=== PATIENT | male | born 1955 | race Caucasian/White ===

== ENCOUNTER 2020-05-24 09:54 | Emergency (ER) | payer MEDICARE, SELFPAY ==
[2020-05-24] VITALS (12 sets, daily range): BP systolic 110–150; BP diastolic 63–85; PULSE 49–60; RESP 12–26; TEMP 36.7; O2SAT 97–100
--- NOTE | 2020-05-24 10:24 | DI.RAD.S_ITS ---
PROCEDURE: XR CHEST 1V INDICATIONS: chest pain TECHNIQUE: One view of the chest was acquired. COMPARISON: [facility], , CHEST 1 VIEW, 09/28/2014, 11:47. FINDINGS: Surgical changes and devices: None. Lungs and pleura: Lungs are clear. No pleural effusions or pneumothorax. Mediastinum: Mediastinal contours appear normal. Heart size is normal. Bones and chest wall: No suspicious bony lesions. Overlying soft tissues appear unremarkable. IMPRESSION: No acute cardiopulmonary pathology. Dictated by: Dewayne Holley M.D. on 05/24/2020 at 10:16 Approved by: Dewayne Holley M.D. on 05/24/2020 at 10:23
[2020-05-24 10:34] LABS: Add Manual Diff / Slide Review NO; Basophils Absolute Auto 0 /uL (0-100); Basophils Percent Auto 0.4 % (0-2); Eosinophils Absolute Auto 100 /uL (0-450); Eosinophils Percent Auto 0.8 % (2-4); Hematocrit 47.5 % (41-53); Hemoglobin 16.1 g/dL (13.5-17.5); Lymphocytes Absolute Auto 1200 /uL (1100-4500); Lymphocytes Percent Auto 17.1 % (25-40); Mean Corpuscular HGB Conc 33.9 % (30-36); Mean Corpuscular Hemoglobin 30.5 PG (26-34); Mean Corpuscular Volume 90.2 fL (80-100); Monocytes Absolute Auto 500 /uL (0-900); Monocytes Percent Auto 6.7 % (3-14); Neutrophils Absolute Auto 5100 /uL (1500-7000); Platelet Count 238 X10^3/uL (150-400); Red Blood Cell Count 5.26 X10^6/uL (4.5-5.9); Red Cell Distribution Width 13.1 % (11.6-14.8); White Blood Cell Count 6.7 X10^3/uL (4.5-11.0)
[2020-05-24 10:35] LABS: Prothrombin Time 12.1 SECONDS (10.1-12.7)
[2020-05-24 10:38] LABS: PTT Partial Thromboplastin Tim 34 SECONDS (26.4-36.2)
--- NOTE | 2020-05-24 10:38 | ED_ITS ---
HPI - Chest Pain General Chief Complaint: Chest Pain Stated Complaint: Thinks he's having an Afib attack.. Time Seen by Provider: 05/24/20 10:36 Source: patient Mode of arrival: Ambulatory Limitations: no limitations History of Present Illness HPI narrative: The patient describes palpitations, he has a sensations lower chest. Symptoms have been intermittent, but see me much for frequent in the last 2 days. He has a history of paroxysmal atrial fib, the situation does not seem quite the same, the palpitations are not as persistent. Has no associated chest pain, weakness or dizziness. He does complain of a headache. He also has left posterior neck pain. He says he does not feel well. He denies recent il lness. He has had no sore throat, change in taste or smell, dyspnea or cough. He has had no fever or chills. His adds that he is under lot of pressure right now, she was recently diagnosed with stage IV breast cancer. Other than the remote history of AFib, he has no chronic medical problems. He is on no medications. He has no prior history of surgeries. 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 Related Data Home Medications Medication Instructions Recorded Confirmed No Known Home Medications 05/24/20 05/24/20 Allergies Allergy/AdvReac Type Severity Reaction Status Date / Time No Known Drug Allergies Allergy Verified 05/24/20 10:24 Review of Systems Constitutional Constitutional: Reports system reviewed and no additional complaints, except as documented, Denies anorexia, Reports body ache(s), Denies chills, Reports fatigue, Denies fever(s) and Reports headache(s) Eyes Eyes: Denies change in vision ENT Ears, Nose, Mouth, and Throat: Denies vertigo, Denies dizziness and Reports headache(s) Comments: No ENT complaints. No sore throat. Cardiovascular Cardiovascular: Denies chest pain, Denies syncope, Denies rapid heart rate, Denies pedal edema and Denies dyspnea Comments: Palpitations. Respiratory Respiratory: Denies cough, Denies pain with cough and Denies dyspnea Gastrointestinal Gastrointestinal: Denies abdominal pain, Denies change in bowel habits, Denies diarrhea, Denies nausea and Denies vomiting Genitourinary Comments: No urinary symptoms Musculoskeletal Musculoskeletal: Denies back pain and Denies arthralgias Integumentary/Breasts Skin/Breast: Denies pruritus, Denies erythema, Denies rash and Denies wounds Neurologic Neurologic: Denies confusion, Denies vertigo, Denies dizziness, Denies syncope and Reports headache(s) Psychiatric Psychiatric: Denies confusion Endocrine Endocrine: Reports fatigue Patient History Medical History (Updated 05/24/20 @ 13:51 by Hua Rivera MD) Paroxysmal atrial fibrillation (Acute) Social History Smoking Status: Former smoker Smoking Status: Former smoker alcohol intake frequency: 0-2 drinks per day Substance Use Type: does not use Exam Initial Vital Signs Initial Vital Signs: Vital Signs Temperature 98.1 F 05/24/20 09:57 Pulse Rate 60 05/24/20 09:57 Respiratory Rate 12 05/24/20 09:57 Blood Pressure 150/85 H 05/24/20 09:57 Pulse Oximetry 99 05/24/20 09:57 Const General: cooperative and well developed Nutritional Appearance: well nourished [facility] Head: normocephalic and atraumatic Mouth: oral mucosae normal Throat: posterior oropharynx normal Eyes General: appearance normal, both eyes and all related structures Eyelids: eyelids normal Conjunctivae: conjunctivae normal Sclera: sclerae normal Pupils: PERRL EOM: EOM intact bilaterally Neck Other: Mild left mid cervical paraspinal tenderness. No tenderness over the cervical spine. No meningeal signs. Chest Chest: normal inspection of the chest Resp Effort & Inspection: normal respiratory effort and able to speak in complete sentences Auscultation: clear to auscultation bilaterally, no rales, no rhonchi and no wheezes Cardio Rate: bradycardic Heart Sounds: S1 normal, S2 normal, no click, no gallops and no murmurs GI Inspection: non-distended Palpation: soft, no hepatosplenomegaly, No guarding, No pulsatile mass and No tender Auscultation: normal bowel sounds Back/Spine/Pelvis Back: No CVA tenderness and No erythema Skin General: no rashes or lesions noted, No jaundice and No petechiae Neuro General: patient alert, patient oriented x3, gait normal and no focal motor deficits Speech: speech normal Extrem General: full ROM, no clubbing, cyanosis or edema, no pedal edema and no calf tenderness Psych Mental Status: mental status grossly normal Course Course Course Narrative: The patient was given IV Toradol and Reglan for his headache with good results. He is feeling much better. His cardiopulmonary evaluations normal. He has a healthy blood pressure with a healthy sinus bradycardia. As his inferred, I suspect part of his issues are related to his anxiety and concern of her health. He is seeking a local physician Danelle Roper, I have advised him to proceed but return here if symptoms escalate. Orders Ordered: ED Orders 05/24/20 10:09 Complete Blood Count AUTO DIFF Stat Comprehensive Metabolic Panel Stat Lipase Stat Magnesium Stat Partial Thromboplastin Time Stat Prothrombin Time INR Stat Troponin & CK Cardiac Panel Stat 05/24/20 10:24 XR chest 1V Stat EKG-12 Lead Stat Discontinued Medications Aspirin (Aspirin Chew) 324 mg PO NOW ONE Stop: 05/24/20 10:25 Last Admin: 05/24/20 10:43 Dose: 324 mg Documented by: DINO Sodium Chloride (Normal Saline 0.9%) 1,000 mls @ 1,000 mls/hr IV BOLUS ONE Stop: 05/24/20 12:43 Last Infusion: 05/24/20 13:00 Dose: 1,000 mls/hr Documented by: Admin: 05/24/20 11:54 Dose: 1,000 mls/hr Documented by: DINO Ketorolac Tromethamine (Toradol) 15 mg IV NOW ONE Stop: 05/24/20 11:46 Last Admin: 05/24/20 11:53 Dose: 15 mg Documented by: DINO Metoclopramide HCl (Reglan) 10 mg IV NOW ONE Stop: 05/24/20 11:46 Last Admin: 05/24/20 11:53 Dose: 10 mg Documented by: DINO Vital Signs Vital signs: Vital Signs - 8 hr 05/24/20 09:57 05/24/20 10:26 05/24/20 10:30 Temperature 98.1 F Pulse Rate 60 58 L 56 L Respiratory Rate 12 16 22 Blood Pressure 150/85 H 121/70 Pulse Oximetry 99 98 98 05/24/20 11:00 05/24/20 11:30 05/24/20 12:00 Temperature Pulse Rate 52 L 49 L 51 L Respiratory Rate 23 16 26 H Blood Pressure 122/69 118/65 Pulse Oximetry 98 98 99 05/24/20 12:03 05/24/20 12:30 05/24/20 12:31 Temperature Pulse Rate 59 L 53 L 56 L Respiratory Rate 15 18 Blood Pressure 146/80 H 121/63 Pulse Oximetry 99 97 98 05/24/20 13:00 05/24/20 13:30 Temperature Pulse Rate 52 L 53 L Respiratory Rate Blood Pressure 114/67 110/68 Pulse Oximetry 98 100 MDM - Chest Pain Lab Data Result diagrams: 05/24/20 10:09 05/24/20 10:09 Labs: Lab Results 05/24/20 05/24/20 05/24/20 Range/Units 10:09 10:09 10:09 WBC 6.7 (4.5-11.0) X10^3/uL RBC 5.26 (4.5-5.9) X10^6/uL Hgb 16.1 (13.5-17.5) g/dL Hct 47.5 (41-53) % MCV 90.2 (80-100) fL MCH 30.5 (26-34) PG MCHC 33.9 (30-36) % RDW 13.1 (11.6-14.8) % Plt Count 238 (150-400) X10^3/uL Neut % (Auto) 75.0 (50-75) % Lymph % (Auto) 17.1 L (25-40) % [place] % (Auto) 6.7 (3-14) % Eos % (Auto) 0.8 L (2-4) % Baso % (Auto) 0.4 (0-2) % Neut # (Auto) 5100 (7281-6816) /uL Lymph # (Auto) 1200 (0039-9329) /uL [place] # (Auto) 500 (0-900) /uL Eos # (Auto) 100 (0-450) /uL Baso # (Auto) 0 (0-100) /uL PT 12.1 (10.1-12.7) SECONDS INR 1.0 (0.9-1.3) APTT 34 (26.4-36.2) SECONDS Sodium 139 (137-145) mmol/L Potassium 4.8 (3.4-5.1) mmol/L Chloride 108 H (98-107) mmol/L Carbon Dioxide 25 (22-32) mmol/L BUN 14 (9-20) mg/dL Creatinine 0.87 (0.66-1.25) mg/dL Estimated GFR > 60.0 (>60) mL/min BUN/Creatinine Ratio 16.1 (6-22) Glucose 106 (80-110) mg/dL Calcium 9.2 (8.4-10.2) mg/dL Magnesium (1.6-2.3) mg/dL Total Bilirubin 0.7 (0.2-1.3) mg/dL AST 30 (17-59) IU/L ALT 22 (<50) IU/L Alkaline Phosphatase 97 (38-126) U/L Total Creatine Kinase 87 (55-170) U/L CK-MB (CK-2) TNP CK-MB (CK-2) Rel Index TNP Troponin I < 0.012 (0.01-0.034) ng/mL Total Protein 7.0 (6.3-8.2) g/dL Albumin 4.3 (3.5-5.0) g/dL Globulin 2.7 (1.7-4.1) g/dL Albumin/Globulin Ratio 1.6 (1.0-2.8) Lipase 92 (23-300) U/L // Range/Units 10:09 WBC (4.5-11.0) X10^3/uL RBC (4.5-5.9) X10^6/uL Hgb (13.5-17.5) g/dL Hct (41-53) % MCV (80-100) fL MCH (26-34) PG MCHC (30-36) % RDW (11.6-14.8) % Plt Count (150-400) X10^3/uL Neut % (Auto) (50-75) % Lymph % (Auto) (25-40) % [place] % (Auto) (3-14) % Eos % (Auto) (2-4) % Baso % (Auto) (0-2) % Neut # (Auto) (9405-1280) /uL Lymph # (Auto) (1063-5375) /uL [place] # (Auto) (0-900) /uL Eos # (Auto) (0-450) /uL Baso # (Auto) (0-100) /uL PT (10.1-12.7) SECONDS INR (0.9-1.3) APTT (26.4-36.2) SECONDS Sodium (137-145) mmol/L Potassium (3.4-5.1) mmol/L Chloride (98-107) mmol/L Carbon Dioxide (22-32) mmol/L BUN (9-20) mg/dL Creatinine (0.66-1.25) mg/dL Estimated GFR (>60) mL/min BUN/Creatinine Ratio (6-22) Glucose (80-110) mg/dL Calcium (8.4-10.2) mg/dL Magnesium 2.1 (1.6-2.3) mg/dL Total Bilirubin (0.2-1.3) mg/dL AST (17-59) IU/L ALT (<50) IU/L Alkaline Phosphatase (38-126) U/L Total Creatine Kinase (55-170) U/L CK-MB (CK-2) CK-MB (CK-2) Rel Index Troponin I (0.01-0.034) ng/mL Total Protein (6.3-8.2) g/dL Albumin (3.5-5.0) g/dL Globulin (1.7-4.1) g/dL Albumin/Globulin Ratio (1.0-2.8) Lipase (23-300) U/L Imaging Data Chest x-ray: Radiologist's Impression: No acute cardiopulmonary process identified. ECG Data Attestation: I personally reviewed and interpreted this ECG as follows: (Sinus bradycardia rate 59 beats per minute. Normal intervals. Poor R-wave progression to the anterior leads. No acute ST T wave changes. No ectopy.) Discharge Plan Departure Patient Disposition: Home Clinical Impression: Palpitations Acute tension headache Qualifiers: Intractability: not intractable Qualified Code(s): G44.209 - Tension-type headache, unspecified, not intractable Instructions: Tension Headache, DI for Palpitations Activity Restrictions/Additional Instructions: Be sure getting appropriate rest, be sure your nutrition in water intake are adequate. Tylenol 2 tablets every 4 hours, or Advil 3 tabs every 6 hours as needed for headache. If you have worsening headaches, or if you develop persistent chest pain weakness or dizziness return the ER. Otherwise establish care with local doctor in [place] as we discussed. Prescriptions: No Action No Known Home Medications RF: 0
[2020-05-24 10:39] LABS: Alanine Aminotransferase 22 IU/L (<50); Albumin 4.3 g/dL (3.5-5.0); Albumin Globulin Ratio 1.6 (1.0-2.8); Alkaline Phosphatase 97 U/L (38-126); Aspartate Aminotransferase 30 IU/L (17-59); BUN Creatinine Ratio 16.1 (6-22); Bilirubin Total 0.7 mg/dL (0.2-1.3); Blood Urea Nitrogen 14 mg/dL (9-20); Calcium 9.2 mg/dL (8.4-10.2); Carbon Dioxide 25 mmol/L (22-32); Chloride 108 mmol/L (98-107); Creatine Kinase 87 U/L (55-170); Estimated Glomerular Filt Rate > 60.0 mL/min (>60); Globulin 2.7 g/dL (1.7-4.1); Glucose 106 mg/dL (80-110); HEMOLYSIS < 15 (0-50); Lipase 92 U/L (23-300); Potassium 4.8 mmol/L (3.4-5.1); Sodium 139 mmol/L (137-145)
[2020-05-24 10:40] LABS: Magnesium 2.1 mg/dL (1.6-2.3)
[2020-05-24] MEDS: ASPIRIN 81 MG CHEW TAB 324 MG PO (10:43)
--- NOTE | 2020-05-24 10:45 | PC.NURSE ---
Pt states that he has been under tremendous stress r/t wifes stage IV cancer diagnosis. States he believes he has been in afib, with increased questions he describes regular beats then a single 'thump' which 'feels like the PVCs I have had in the past, just worse than normal.
[2020-05-24 10:51] LABS: Troponin I < 0.012 ng/mL (0.01-0.034)
[2020-05-24] MEDS: METOCLOPRAMIDE 10 MG/2 ML INJ IV (11:53)
[2020-05-24] MEDS: KETOROLAC 60 MG/2 ML VIAL 15 MG IV (11:53)
[2020-05-24] MEDS: SODIUM CHLORIDE 0.9% 1,000 ML 1000 ML IV (11:54)
== END 2020-05-24 14:05 | disposition home or self-care (01) ==
PROVIDERS: Emergency Provider Emergency Medicine
DX: R00.2 Palpitations (principal); G44.209 Tension-type headache, unspecified, not intractable; R00.1 Bradycardia, unspecified; I48.0 Paroxysmal atrial fibrillation
CPT/HCPCS: 36415; 71045; 80053; 82550; 83690; 83735; 84484; 85025; 85610; 85730; 93005; 96361; 96374; 96375; 99284; J1885; J2765

== ENCOUNTER → 2020-11-28 10:46 | Outpatient (CLI) | payer MEDICARE, SELFPAY ==
--- NOTE | 2020-11-28 | DI.RAD.S_ITS ---
PROCEDURE: XR CHEST 2V INDICATIONS: ASPIRATION INTO AIRWAY INITIAL ENCOUNTER. COUGH TECHNIQUE: 2 views of the chest were acquired. COMPARISON: [facility], [place], XR CHEST 1V, 05/24/2020, 10:49. [facility], [place], CHEST 1 VIEW, 09/28/2014, 11:47. FINDINGS: Surgical changes and devices: None. Lungs and pleura: Lungs are clear. No pleural effusions or pneumothorax. Mediastinum: Mediastinal contours are normal. Heart size is normal. Bones and chest wall: No suspicious bony abnormalities. Soft tissues appear unremarkable. IMPRESSION: Normal for age, source of current cough symptoms is not seen. Dictated by: Bashir Carrillo M.D. on 11/28/2020 at 13:22 Approved by: Bashir Carrillo M.D. on 11/28/2020 at 13:23
== END ==
PROVIDERS: PCP Student in an Organized Health Care Education/Training Program; Referring Provider Student in an Organized Health Care Education/Training Program; Visit Provider Student in an Organized Health Care Education/Training Program
DX: R05 Cough (principal); T17.908A Unspecified foreign body in respiratory tract, part unspecified causing other injury, initial encounter
CPT/HCPCS: 71046

== ENCOUNTER → 2020-12-02 13:05 | Outpatient (CLI) | payer MEDICARE, SELFPAY ==
--- NOTE | 2020-12-24 08:11 | PM.CARDMON.1 ---
[employer] Report Referral & Results Date Patient Seen: 12/02/20 Requesting provider: Elvie Strauss Indication: Atrial fibrillation Duration of monitoring (days): 7 Diary information: There were 8 patient triggered events and 8 patient diary entries Patient triggered events were associated with (within 45 seconds) sinus rhythm, PACs, and PVCs Patient diary events were associated with (within 45 seconds) sinus rhythm and PVCs Data: Minimum heart rate identified was 40 beats per minute at 05:42 on 12/08/2020 Maximum sinus heart rate was 114 beats per minute at 12:19 on 12/08/2020 Maximum overall heart rate was 184 beats per minute at 16:06 on 12/05/2020 during a 9 beat run of SVT Less than 1% of identified beats or either ventricular supraventricular ectopic in origin There were 15 runs of SVT the fastest being the 9 beat run noted above the longest lasting 17.2 seconds stated rate of 115 beats per minute which suggest atrial tachycardia rather than true SVT Impression: Patient with brief rare runs of SVT as above Mild bradycardia also noted with minimum heart rate of 40 No episodes of atrial fibrillation identified on this study
== END ==
PROVIDERS: PCP Student in an Organized Health Care Education/Training Program; Referring Provider Student in an Organized Health Care Education/Training Program; Visit Provider Student in an Organized Health Care Education/Training Program
DX: I48.91 Unspecified atrial fibrillation (principal)
CPT/HCPCS: 93242; 93244

== ENCOUNTER 2021-09-10 09:54 | Inpatient (IN) | payer MEDICARE, SELFPAY ==
[2021-09-10] VITALS (21 sets, daily range): BP systolic 102–150; BP diastolic 52–86; PULSE 16–81; RESP 12–18; TEMP 36.4–37.8; O2SAT 94–98; BMI 34.8
--- NOTE | 2021-09-10 | PATH_ITS ---
[facility] Accession Number: [id number] . 01 Material submitted: . appendix - APPENDIX . 02 Diagnosis: Appendix, Appendectomy: Acute appendicitis and serositis with features suggestive of perforation. MRV 09/15/2021 1218 Local . 02 Electronically signed: . Alyssia Brown MD, Pathologist NPI- [id number] . 01 Gross description: . Received in formalin, labeled with the patient's name and appendix is a significantly disrupted specimen consisting of hemorrhagic and adhesed tissue admixed with fatty tissue and possible appendix measuring 7.0 x 5.2 x 2.6 cm in aggregate. No fecaliths are identified. Heel Shaver sections are submitted as follows: . A1: Possible appendix tip. A2: Additional possible appendix. (MILLA:[id number]) /MRV 09/12/2021 1401 Local . 02 Pathologist provided ICD-10: K35.20 . 02 CPT . 481724 Performed at: 01 [facility] [address], [place], [place] [id number] MD Gordon Brar MD Phone: [phone] Performed at: 02 [facility] [address] [place], [place] [id number] MD Ange Bonner MD Phone: [phone]
[2021-09-10 10:42] LABS: Add Manual Diff / Slide Review NO; Basophils Absolute Auto 0 /uL (0-100); Basophils Percent Auto 0.2 % (0-2); Eosinophils Absolute Auto 100 /uL (0-450); Eosinophils Percent Auto 0.4 % (2-4); Hematocrit 43.2 % (41-53); Hemoglobin 14.6 g/dL (13.5-17.5); Lymphocytes Absolute Auto 1200 /uL (1100-4500); Lymphocytes Percent Auto 9.5 % (25-40); Mean Corpuscular HGB Conc 33.9 % (30-36); Mean Corpuscular Hemoglobin 30.1 PG (26-34); Mean Corpuscular Volume 88.8 fL (80-100); Monocytes Absolute Auto 1200 /uL (0-900); Neutrophils Absolute Auto 9800 /uL (1500-7000); Neutrophils Percent Auto 79.9 % (50-75); Platelet Count 245 X10^3/uL (150-400); Red Blood Cell Count 4.86 X10^6/uL (4.5-5.9); Red Cell Distribution Width 12.9 % (11.6-14.8); White Blood Cell Count 12.2 X10^3/uL (4.5-11.0)
[2021-09-10 10:49] LABS: Alanine Aminotransferase 17 IU/L (<50); Albumin Globulin Ratio 1.4 (1.0-2.8); Alkaline Phosphatase 87 U/L (38-126); Aspartate Aminotransferase 23 IU/L (17-59); BUN Creatinine Ratio 12.7 (6-22); Bilirubin Total 0.8 mg/dL (0.2-1.3); Blood Urea Nitrogen 13 mg/dL (9-20); Calcium 9.1 mg/dL (8.4-10.2); Carbon Dioxide 28 mmol/L (22-32); Chloride 102 mmol/L (98-107); Estimated Glomerular Filt Rate > 60.0 mL/min (>60); Globulin 2.8 g/dL (1.7-4.1); Glucose 103 mg/dL (80-110); HEMOLYSIS < 15 (0-50); Lipase 63 U/L (23-300); Potassium 4.4 mmol/L (3.4-5.1); Sodium 135 mmol/L (137-145); Total Protein 6.8 g/dL (6.3-8.2)
--- NOTE | 2021-09-10 10:50 | ED_ITS ---
HPI - Abdominal Pain General Chief Complaint: Abdominal Pain Stated Complaint: ABD pain four weeks Time Seen by Provider: 09/10/21 10:37 Source: patient Mode of arrival: Ambulatory Limitations: no limitations History of Present Illness HPI narrative: This is a 66-year-old male who comes with at least a week of abdominal pain he states he has actually had intermittent abdominal discomfort but since before he has been having intermittent abdominal pain which is often present but has been worsening. He will have some mild pain that will occasionally be quite sharp in certain locations. It sort of started in the left lower quadrant but he also notes it on more consistently on the right lower quadrant at sort of throughout the entire got times. He has had some mild intermittent nausea but nothing persistent. He has not had any vomiting. He has felt a little warm today but no documented fevers or chills. He has been constipated with very small palpably bowel movements which now have become long and and somewhat sticky and or bladder little bit softer. Patient has not had any melena or hematochezia. He denies any new urinary symptoms. 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 Patient states they were able to reach it rectal coulee and he did not require open abdominal surgery or ex lap. He has not had a colonoscopy or repeat evaluation for this since then. He does also have a history of diverticulitis and was admitted for 3 days in the past for IV antibiotics. He is on aspirin daily and has a history of paroxysmal atrial fibrillation. He denies any tobacco or alcohol since age 28. No recreational drugs. His primary care is Elvie Strauss. Related Data Home Medications Medication Instructions Recorded Confirmed aspirin 325 mg tablet 325 mg PO DAILY 09/10/21 09/10/21 cholecalciferol (vitamin D3) 25 50 mcg PO DAILY 09/10/21 09/10/21 mcg (1,000 unit) tablet (Vitamin D3) Allergies Allergy/AdvReac Type Severity Reaction Status Date / Time No Known Drug Allergies Allergy Verified 09/10/21 10:10 Review of Systems Review of Systems ROS Unobtainable: All systems reviewed & are unremarkable except as noted in HPI and below Patient History Medical History (Updated 09/10/21 @ 13:32 by Steven Marin MD) Fracture of left tibia Paroxysmal atrial fibrillation Social History household members: none Smoking Status: Former smoker Smoking Status: Former smoker alcohol intake frequency: holidays/special occasions only Substance Use Type: does not use Exam Narrative Exam Narrative: GENERAL: Alert and oriented x three, male in mild distress. HEENT: Head normocephalic, atraumatic, EOMI, pupils reactive, face symmetric, moist mucous membranes NECK: Supple, full range of motion CARDIOVASCULAR: Regular rate and rhythm without murmurs, rubs or gallops. RESPIRATORY: Breath sounds equal bilaterally, no wheezes rales or rhonchi. ABDOMEN: Soft, nontender on palpation. Non-distended. Normoactive bowel sounds all 4 quadrants. No guarding or rebound, rigidity, no mass : No CVA tenderness EXTREMITIES: Normal range of motion. Neurovascularly intact NEUROLOGICAL: Cranial nerves II through XII grossly intact. Moving all extremities SKIN: Warm, dry, no petechiae, no rashes or lesions. 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 swab/PCR) Stat COVID19 -Nasal swab/Pre-Proc Stat Acetaminophen (Acetaminophen 325 Mg Tablet) 650 mg PO PACUNOW PRN PRN Reason: Pain, Mild (1-3) Fentanyl (Fentanyl 100 Mcg/2 Ml Inj) 0 mcg IV Q5M PRN PRN Reason: Pain, Moderate (4-6) Hydromorphone HCl (Hydromorphone 2 Mg Inj) 0 mg IV Q5MIN PRN PRN Reason: Pain, Mild (1-3) Lactated Ringer's (Lactated Ringers) 1,000 mls @ 100 mls/hr IV CONT CLARITZA Last Admin: 09/10/21 17:59 Dose: 100 mls/hr Documented by: [email or web address] Infusion: 09/10/21 17:59 Dose: 100 mls/hr Documented by: Admin: 09/10/21 17:53 Dose: 100 mls/hr Documented by: [email or web address] Infusion: 09/10/21 17:53 Dose: 100 mls/hr Documented by: Admin: 09/10/21 14:16 Dose: 100 mls/hr Documented by: IRA Piperacillin Sod/Tazobactam (Sod 3.375 gm/ Sodium Chloride) 100 mls @ 25 mls/hr IV NOW ONE Stop: 09/10/21 18:53 Last Infusion: 09/10/21 18:30 Dose: 0 mls/hr Documented by: Admin: 09/10/21 18:20 Dose: 25 mls/hr Documented by: KELSEY Influenza Virus Vaccine (Influenza Hd Vaccine 0.7 Ml Syringe) 0.7 ml IM .ONCE ONE Stop: 09/11/21 09:01 Morphine Sulfate (Morphine 2 Mg/Ml Inj) 2 mg IV Q4HR PRN PRN Reason: Pain, Moderate (4-6) Naloxone HCl (Naloxone 0.4 Mg/Ml Vial) 0.2 mg IV Q2MIN PRN PRN Reason: Opiate Reversal Ondansetron HCl (Ondansetron 4 Mg/2 Ml Inj) 4 mg IV NOW PRN PRN Reason: Nausea And Vomiting Oxycodone HCl (Oxycodone Ir 5 Mg Tablet) 5 mg PO PACUNOW PRN PRN Reason: Mild or moderate pain Discontinued Medications Bupivacaine HCl (Bupivacaine 0.5% (Pf) Vial) 30 ml INJ NOW ONE Stop: 09/10/21 18:46 Last Admin: 09/10/21 18:46 Dose: 20 ml Documented by: RADHA Piperacillin Sod/Tazobactam (Sod 4.5 gm/ Sodium Chloride) 100 mls @ 200 mls/hr IV NOW ONE Stop: 09/10/21 12:30 Last Infusion: 09/10/21 13:25 Dose: 0 mls/hr Documented by: Admin: 09/10/21 12:44 Dose: 200 mls/hr Documented by: PASCUAL Sodium Chloride (Normal Saline 0.9%) 1,000 mls @ 150 mls/hr IV CONT CLARITZA Last Infusion: 09/10/21 13:35 Dose: 0 mls/hr Documented by: Admin: 09/10/21 12:45 Dose: 150 mls/hr Documented by: PASCUAL Piperacillin Sod/Tazobactam (Sod 3.375 gm/ Sodium Chloride) 100 mls @ 200 mls/hr IV INTRA-OP ONE Stop: 09/10/21 13:50 Ketorolac Tromethamine (Ketorolac 30 Mg/Ml Vial) 15 mg IV NOW ONE Stop: 09/10/21 12:30 Last Admin: 09/10/21 12:43 Dose: 15 mg Documented by: PASCUAL Consultations Consultation #1: Dr. Marin, accepts for appendicitis. He saw the patient in the department. IV Zosyn was given. Patient has been admitted and has been NPO since 06/09 this morning. Vital Signs Vital signs: Vital Signs - 8 hr 09/10/21 10:55 09/10/21 11:00 09/10/21 11:28 Pulse Rate 68 69 70 Blood Pressure 136/78 131/77 135/70 Pulse Oximetry 97 97 98 09/10/21 11:30 09/10/21 12:00 Pulse Rate 67 67 Blood Pressure Pulse Oximetry 97 95 MDM - Abdominal Pain Lab Data Result diagrams: 09/10/21 10:23 09/10/21 10:23 Labs: Lab Results 09/10/21 09/10/21 09/10/21 Range/Units 10:23 10:23 11:16 WBC 12.2 H (4.5-11.0) X10^3/uL RBC 4.86 (4.5-5.9) X10^6/uL Hgb 14.6 (13.5-17.5) g/dL Hct 43.2 (41-53) % MCV 88.8 (80-100) fL MCH 30.1 (26-34) PG MCHC 33.9 (30-36) % RDW 12.9 (11.6-14.8) % Plt Count 245 (150-400) X10^3/uL Neut % (Auto) 79.9 H (50-75) % Lymph % (Auto) 9.5 L (25-40) % [place] % (Auto) 10.0 (3-14) % Eos % (Auto) 0.4 L (2-4) % Baso % (Auto) 0.2 (0-2) % Neut # (Auto) 9800 H (0747-7900) /uL Lymph # (Auto) 1200 (6411-2115) /uL [place] # (Auto) 1200 H (0-900) /uL Eos # (Auto) 100 (0-450) /uL Baso # (Auto) 0 (0-100) /uL Sodium 135 L (137-145) mmol/L Potassium 4.4 (3.4-5.1) mmol/L Chloride 102 (98-107) mmol/L Carbon Dioxide 28 (22-32) mmol/L BUN 13 (9-20) mg/dL Creatinine 1.02 (0.66-1.25) mg/dL Estimated GFR > 60.0 (>60) mL/min BUN/Creatinine Ratio 12.7 (6-22) Glucose 103 (80-110) mg/dL Calcium 9.1 (8.4-10.2) mg/dL Total Bilirubin 0.8 (0.2-1.3) mg/dL AST 23 (17-59) IU/L ALT 17 (<50) IU/L Alkaline Phosphatase 87 (38-126) U/L Total Protein 6.8 (6.3-8.2) g/dL Albumin 4.0 (3.5-5.0) g/dL Globulin 2.8 (1.7-4.1) g/dL Albumin/Globulin Ratio 1.4 (1.0-2.8) Lipase 63 (23-300) U/L Urine RBC 1-5/hpf (0-5/HPF) Urine WBC 0-1/hpf (0-5/HPF) Urine Bacteria None seen (None) Ur Culture Indicated? Cult not indicated SARS-CoV-2 (PCR) (Negative) 09/10/21 09/10/21 Range/Units 12:03 12:03 WBC (4.5-11.0) X10^3/uL RBC (4.5-5.9) X10^6/uL Hgb (13.5-17.5) g/dL Hct (41-53) % MCV (80-100) fL MCH (26-34) PG MCHC (30-36) % RDW (11.6-14.8) % Plt Count (150-400) X10^3/uL Neut % (Auto) (50-75) % Lymph % (Auto) (25-40) % [place] % (Auto) (3-14) % Eos % (Auto) (2-4) % Baso % (Auto) (0-2) % Neut # (Auto) (8889-0490) /uL Lymph # (Auto) (7138-9345) /uL [place] # (Auto) (0-900) /uL Eos # (Auto) (0-450) /uL Baso # (Auto) (0-100) /uL Sodium (137-145) mmol/L Potassium (3.4-5.1) mmol/L Chloride (98-107) mmol/L Carbon Dioxide (22-32) mmol/L BUN (9-20) mg/dL Creatinine (0.66-1.25) mg/dL Estimated GFR (>60) mL/min BUN/Creatinine Ratio (6-22) Glucose (80-110) mg/dL Calcium (8.4-10.2) mg/dL Total Bilirubin (0.2-1.3) mg/dL AST (17-59) IU/L ALT (<50) IU/L Alkaline Phosphatase (38-126) U/L Total Protein (6.3-8.2) g/dL Albumin (3.5-5.0) g/dL Globulin (1.7-4.1) g/dL Albumin/Globulin Ratio (1.0-2.8) Lipase (23-300) U/L Urine RBC (0-5/HPF) Urine WBC (0-5/HPF) Urine Bacteria (None) Ur Culture Indicated? SARS-CoV-2 (PCR) Negative Negative (Negative) Point of care testing: Urine Dip Bedside Urine Glucose Negative Bedside Urine Bilirubin - Negative Bedside Urine Ketone +/- 5 Urine Specific [place] 1.015 Bedside Urine Occult Blood ++ Bedside Urine pH 6.0 Bedside Urine Protein - Negative Bedside Urine Urobilinogen - Negative Bedside Urine Nitrite - Negative Bedside Urine Leukocytes - Negative Esterase Imaging Data CT scan - abdomen/pelvis: Radiologist's Impression: Launch?[address] [address] [address] Scan Report Signed Patient: Andrew Cullen MR#: [id number] : 1955 Acct:[id number] Age/Sex: 66 / M Date of Service: 09/10/21 Loc: ED Accession Number: [id number] ?? Procedure: CT abdomen pelvis w con Ordering Provider: Carin Azevedo D.O. PROCEDURE:? CT ABDOMEN PELVIS W CON ? INDICATIONS:? abd pain x 1 wk, hx colon resect 2000. hx diveriticulitis ? TECHNIQUE:? After the administration of intravenous contrast, axial sections acquired from the lung bases to the pubic symphysis.? Coronal and sagittal reformats were performed.? For radiation dose reduction, the following was used:? automated exposure control, adjustment of mA and/or kV according to patient size.? ? COMPARISON:? None. ? FINDINGS:? Image quality:? Excellent.? ? Lung bases:? Left basilar atelectasis. Heart:? No significant findings. ? ABDOMEN: Liver:? Normal size.? Multiple indeterminate small hepatic hypodensities are present, too small to further characterize.? ? Gallbladder:? Unremarkable.? ? Biliary ducts:? Unremarkable.? ? Pancreas:? Unremarkable.? ? Spleen:? Unremarkable.? ? Adrenal Glands:? Unremarkable.? ? Kidneys and Ureters:? Kidneys are normal in size.? There is a large multilocular complex cystic mass in the left kidney measuring 6.7 x 10.6 x 8.3 cm.? ? ? Stomach and Bowel:? Appendix is thickened measuring up to 15 mm. There is prominent periappendiceal stranding compatible with acute appendicitis.? Thickening of cecum is noted.? Diverticulosis without acute diverticulitis. Peritoneum:? Trace amount of free fluid in the right pericolic gutter.? No organized fluid collections to suggest abscess.? No free air.? ? Ventral Wall: ? No hernias.? Abdominal Nodes:? No retroperitoneal or mesenteric adenopathy by size criteria.? Vessels:? Aorta and inferior vena cava are normal in size.? ? PELVIS: Pelvic Organs:? Unremarkable.? ? Bladder:? Unremarkable.? ? Pelvic Nodes: No enlarged lymph nodes.? Miscellaneous: No hernias are seen. ? ? ? Bones:? Mild chronic appearing compression fracture of L1.? Vddtkhkr-[id number] degenerative changes in lumbar spine.? Small foci of sclerosis in bony pelvis and proximal femurs are most likely small bone islands. ? ? IMPRESSION:? ? 1. Appendix is thickened.? There is a marked periappendiceal stranding.? The CT findings are consistent acute appendicitis.? There is also thickenedcecum, likely secondary to direct spread of inflammation/infection.? A neoplastic process, although less likely, is not entirely excluded.? A small amount of free fluid is present in the right lower quadrant.? There is no abscess. ? 2. Colonic diverticulosis.? No CT findings to suggest acute diverticulitis. ? 3. Numerous indeterminate hepatic hypodensities, too small to further characterize.? If clinically indicated, MRI may be obtained for further evaluation. ? 4. A large multilocular complex cyst mass in the left kidney measuring 6.7 x 10.6 x 8.3 cm (at least Bosniak category 2 F).? It is incompletely evaluated with current CT.? To rule out solid component, a short-term renal ultrasound follow-up is recommended. ? 5. Mild chronic compression fracture of L1. ? ? The result was discussed with Dr. Azevedo.? Dictated by: Ramonita Paris M.D. on 09/10/2021 at 11:37 ? ? Approved by: Ramonita Paris M.D. on 09/10/2021 at 11:53?? ECG Data Attestation: I personally reviewed and interpreted this ECG as follows: Prior ECG tracings: available for review Interpretation: Sinus rhythm. Rate of 68 TX 154 QRS 8094 QTC 387. Q wave in 3 as well as V1. Patient has prior EKG which appears similar from July 2020 as well as September of 2014. [facility] Narrative Medical decision making narrative: 66-year-old male comes with complaint of abdominal pain for the past week starting around [place]. He has right lower quadrant changes concerning for appendicitis. He did complain of some right lower quadrant pain. He does have a leftward shift with a slight leukocytosis. Patient was noted to have a left renal mass but does not seem consistent with his pain he has not had any ba ck or flank pain. We discussed he will need to follow up in have ultrasound of this. Patient feels comfortable with this plan. All questions answered. Discharge Plan Departure Patient Disposition: Admitted as Observation Clinical Impression: Acute appendicitis, Left renal mass Admit Date/Time: 09/10/21 13:12 Admit Provider: Steven Marin
--- NOTE | 2021-09-10 11:10 | DI.CT.S_ITS ---
PROCEDURE: CT ABDOMEN PELVIS W CON INDICATIONS: abd pain x 1 wk, hx colon resect 2000. hx diveriticulitis TECHNIQUE: After the administration of intravenous contrast, axial sections acquired from the lung bases to the pubic symphysis. Coronal and sagittal reformats were performed. For radiation dose reduction, the following was used: automated exposure control, adjustment of mA and/or kV according to patient size. COMPARISON: None. FINDINGS: Image quality: Excellent. Lung bases: Left basilar atelectasis. Heart: No significant findings. ABDOMEN: Liver: Normal size. Multiple indeterminate small hepatic hypodensities are present, too small to further characterize. Gallbladder: Unremarkable. Biliary ducts: Unremarkable. Pancreas: Unremarkable. Spleen: Unremarkable. Adrenal Glands: Unremarkable. Kidneys and Ureters: Kidneys are normal in size. There is a large multilocular complex cystic mass in the left kidney measuring 6.7 x 10.6 x 8.3 cm. Stomach and Bowel: Appendix is thickened measuring up to 15 mm. There is prominent periappendiceal stranding compatible with acute appendicitis. Thickening of cecum is noted. Diverticulosis without acute diverticulitis. Peritoneum: Trace amount of free fluid in the right pericolic gutter. No organized fluid collections to suggest abscess. No free air. Ventral Wall: No hernias. Abdominal Nodes: No retroperitoneal or mesenteric adenopathy by size criteria. Vessels: Aorta and inferior vena cava are normal in size. PELVIS: Pelvic Organs: Unremarkable. Bladder: Unremarkable. Pelvic Nodes: No enlarged lymph nodes. Miscellaneous: No hernias are seen. Bones: Mild chronic appearing compression fracture of L1. [id number] degenerative changes in lumbar spine. Small foci of sclerosis in bony pelvis and proximal femurs are most likely small bone islands. IMPRESSION: 1. Appendix is thickened. There is a marked periappendiceal stranding. The CT findings are consistent acute appendicitis. There is also thickenedcecum, likely secondary to direct spread of inflammation/infection. A neoplastic process, although less likely, is not entirely excluded. A small amount of free fluid is present in the right lower quadrant. There is no abscess. 2. Colonic diverticulosis. No CT findings to suggest acute diverticulitis. 3. Numerous indeterminate hepatic hypodensities, too small to further characterize. If clinically indicated, MRI may be obtained for further evaluation. 4. A large multilocular complex cyst mass in the left kidney measuring 6.7 x 10.6 x 8.3 cm (at least Bosniak category 2 F). It is incompletely evaluated with current CT. To rule out solid component, a short-term renal ultrasound follow-up is recommended. 5. Mild chronic compression fracture of L1. The result was discussed with Dr. Azevedo. Dictated by: Ramonita Paris M.D. on 09/10/2021 at 11:37 Approved by: Ramonita Paris M.D. on 09/10/2021 at 11:53
[2021-09-10 11:25] LABS: Bacteria Urine None Seen; Culture Indicated Urine Cult Not Indicated; RBC Urine 1-5/HPF (0-5/HPF); WBC Urine 0-1/HPF (0-5/HPF)
[2021-09-10] MEDS: KETOROLAC 30 MG/ML VIAL 15 MG IV (12:43)
[2021-09-10 12:44] LABS: COVID19 -Nasal RAPID Negative (Negative)
[2021-09-10] MEDS: PIPERACILLIN/TAZO 4.5 GM in SODIUM CHLORIDE 0.9% 100 ML 200 ML IV (12:44)
[2021-09-10] MEDS: SODIUM CHLORIDE 0.9% 1,000 ML 150 ML IV (12:45)
[2021-09-10 13:08] LABS: COVID19 - ADMIT (NP swab/PCR) Negative (Negative)
--- NOTE | 2021-09-10 13:30 | PM.HP.1 ---
History of Present Illness History of Present Illness Chief complaint: ABD pain four weeks Narrative: About 6 days ago the patient began having vague abdominal pain. It became more severe the last 2 days and he presented himself to the emergency room. Pain is mostly centered in the right lower abdomen. Has been a little nauseated at times are no emesis. Last p.o. solids was yesterday. No prior abdominal operations though he has had a benign rectal lesion removed transrectally. Patient History Medical History (Updated 09/10/21 @ 13:32 by Steven Marin MD) Fracture of left tibia Paroxysmal atrial fibrillation Family & Social History Safety & Behavioral: Feels Safe in Current Yes Environment Been Physically Hurt or No Threatened By a Person Tobacco & Substance use: Smoking Status Former smoker alcohol intake frequency holiday/special occasion Substance Use Type does not use Meds Home Medications and Allergies Home Medications Medication Instructions Recorded Confirmed Type No Known Home Medications 05/24/20 05/24/20 History Allergies Allergy/AdvReac Type Severity Reaction Status Date / Time No Known Drug Allergies Allergy Verified 09/10/21 10:10 Review of Systems Review of Systems Narrative: Patient gets a severe headache that can last for hours on the left side of his head. No double vision pain is eyes earache sore throats. No tooth aches. He does were glasses. No cough or cold. He may have had asthma in the past. Never really been diagnosed with it though. No heart problems chest pain. No black or bloody bowel movements. No seizures, 1 blackout in the late when he was diagnosed with atrial fibrillation. No anxiety or depression. Exam Vital Signs (past 8 hours): - 09/10/21 10:06 09/10/21 10:54 09/10/21 10:55 Temperature 99.4 F Pulse Rate 72 68 Respiratory Rate 15 Blood Pressure 150/79 H 136/78 Pulse Oximetry 96 95 97 09/10/21 11:00 09/10/21 11:28 09/10/21 11:30 Temperature Pulse Rate 69 70 67 Respiratory Rate Blood Pressure 131/77 135/70 Pulse Oximetry 97 98 97 09/10/21 12:00 Temperature Pulse Rate 67 Respiratory Rate Blood Pressure Pulse Oximetry 95 Oxygen Delivery Method Room Air Narrative Exam Narrative: Cooperative no apparent distress. His eyes are nonicteric. Oral mucosa is dry no open lesions. Neck is supple. No nodes in the neck supraclavicular areas. Lungs are clear to auscultation without rales or rhonchi. Heart at this time is regular rate and rhythm without murmur gallop. Abdomen is protuberant soft with some mild right lower quadrant tenderness. No hernias appreciated. Patient is alert and oriented x3. Speech rate and content are appropriate. Affect is appropriate. Objective Imaging CT scan - abdomen: My impression: Patient with inflammation around a dilated appendix. Labs Result Diagrams: 09/10/21 10:23 09/10/21 10:23 Labs: Laboratory Results - last 24 hr 09/10/21 09/10/21 09/10/21 10:23 10:23 11:16 WBC 12.2 H RBC 4.86 Hgb 14.6 Hct 43.2 MCV 88.8 MCH 30.1 MCHC 33.9 RDW 12.9 Plt Count 245 Neut % (Auto) 79.9 H Lymph % (Auto) 9.5 L [place] % (Auto) 10.0 Eos % (Auto) 0.4 L Baso % (Auto) 0.2 Neut # (Auto) 9800 H Lymph # (Auto) 1200 [place] # (Auto) 1200 H Eos # (Auto) 100 Baso # (Auto) 0 Sodium 135 L Potassium 4.4 Chloride 102 Carbon Dioxide 28 BUN 13 Creatinine 1.02 Estimated GFR > 60.0 BUN/Creatinine Ratio 12.7 Glucose 103 Calcium 9.1 Total Bilirubin 0.8 AST 23 ALT 17 Alkaline Phosphatase 87 Total Protein 6.8 Albumin 4.0 Globulin 2.8 Albumin/Globulin Ratio 1.4 Lipase 63 Urine RBC 1-5/hpf Urine WBC 0-1/hpf Urine Bacteria None seen Ur Culture Indicated? Cult not indicated SARS-CoV-2 (PCR) 09/10/21 09/10/21 12:03 12:03 WBC RBC Hgb Hct MCV MCH MCHC RDW Plt Count Neut % (Auto) Lymph % (Auto) [place] % (Auto) Eos % (Auto) Baso % (Auto) Neut # (Auto) Lymph # (Auto) [place] # (Auto) Eos # (Auto) Baso # (Auto) Sodium Potassium Chloride Carbon Dioxide BUN Creatinine Estimated GFR BUN/Creatinine Ratio Glucose Calcium Total Bilirubin AST ALT Alkaline Phosphatase Total Protein Albumin Globulin Albumin/Globulin Ratio Lipase Urine RBC Urine WBC Urine Bacteria Ur Culture Indicated? SARS-CoV-2 (PCR) Negative Negative Assessment & Plan Assessment and plan (1) Acute appendicitis: Status: Acute Assessment & Plan narrative: Given patient's history I suspect he has perforated his appendix. He has no abscess however. There was a great deal of inflammation around his appendix on CT scan. I have discussed laparoscopic and open appendectomy with him. Risks of bleeding, infection, abscess formation, hernia or head injury to internal organs were all discussed with him. He appears to understand wishes to proceed. Time Spent With Patient Critical Care time: I spent a total of [] minutes of critical care time on this patient's care today; this time is exclusive of procedural time.
--- NOTE | 2021-09-10 13:36 | PM.PREOP ---
Pre-operative Note COVID-19 COVID-19 status: Negative Result date/Date tested (Pos, Neg/Pending): 09/10/21 Interval Note History & Physical reviewed/Exam performed by Physician: Yes Changes to H&P: No
[2021-09-10] MEDS: LACTATED RINGERS 1,000 ML 100 ML IV ×4 (14:16→20:12)
--- NOTE | 2021-09-10 14:30 | PC.NURSE ---
Received report from ER and pt brought up to room 225 in wheelchair. Alert and oriented, plan of care discussed. Surgery at 1700 per ER report. IV right ac is intact with good blood return. LR up and infusing at 100 ml/hr. Per Er report, Zosyn was given. Called and talked to [facility] pharmacist regarding timing of Zosyn since pt just received it couple hours ago. Pt will likely receive another dose in ER. Pt states he is currently comfortable. States Toradol that was given in ER was very helpful. IS given to patient and instructed on post op use, as well as SCD's purpose and that he will have those on when he wakes up from surgery. Had no questions at this time. Oriented to room and call light. Will continue to monitor.
--- NOTE | 2021-09-10 17:27 | PC.NURSE ---
Report given to OR. Pt transported to OR in bed at 1645.
[2021-09-10] MEDS: PIPERACILLIN/TAZO 3.375 GM in SODIUM CHLORIDE 0.9% 100 ML 25 ML IV ×2 (18:20→22:56)
--- NOTE | 2021-09-10 18:37 | SUR.OPER ---
Supine on padded OR bed, head on pillow, Right arm secured on padded arm boards at <90 degrees abduction, Left arm padded with gel pad and tucked at side, legs uncrossed, safety belt at thigh, tape over blanket over lower legs. Gel pad placed between patient posterior thigh and urinary catheter tubing. patients silver colored earrings removed from left ear lobe and placed in container with patient label, brought to PACU with patient.
[2021-09-10] MEDS: BUPIVACAINE 0.5% (PF) VIAL 30 ML INJ (18:46)
--- NOTE | 2021-09-10 21:03 | SUR.PHASEI ---
Pt from OR in bed with Dr Hollins and Nadia Tillman. Pt breathing unassisted on room air. Pt awoke distressed, attempting to remove cloths. Calmed after 10 or so minutes. Is now teary and missing , states I'm sorry I was so freaked out. Pt with cough from tickle in throat, lungs clear. Unable to get BP when pt agitated.
--- NOTE | 2021-09-10 21:18 | PM.OP.1 ---
Operative Date/Time/Diagnoses Date of procedure: 09/10/21 Time of procedure: 21:19 Pre-op diagnosis: Probable perforated appendicitis Post-op diagnosis: same (Perforated appendicitis) Procedure & Clinicians Procedure: Laparoscopic appendectomy(unusually difficult procedure) Same procedure as scheduled: Yes Indications: Right lower quadrant pain 6 days duration with an abnormal CT, tenderness in the right lower quadrant elevated white blood cell count. Surgeon: Steven Marin Click Yes if Unassisted: Yes Anesthesia Type: General Operative Notes Findings: Necrotic appendix near the base. Removed in pieces. Retrocecal in location. Closure Type: primary Specimen(s): other (Appendix) Prosthetic devices, grafts, tissues, transplants, or devices: None Estimated Blood Loss (mL): 20 Blood products transfused: none Procedure in detail: The patient was placed supine on the operating room table and underwent general endotracheal anesthesia. The patient was prepped and draped in the usual fashion. Local anesthetic was infiltrated and an incision made beneath the umbilicus. It was carried down under direct vision through the fascia into the peritoneal cavity. Stay sutures of 0 Vicryl were placed in the fascia. A 12 mm port was inserted and 2 additional ports were placed. These were 5 mm ports. One was placed between the umbilicus and pubis and 1 in the left lower quadrant. The cecum and terminal ileum were identified. I could not see the appendix however. The patient was repositioned and the intestine manipulated and the appendix could still not be seen. There was a great deal of inflammation under the cecum. I made a small incision in the right lower quadrant directly adjacent to the cecum and entered the peritoneal cavity with that finger. Using finger fracturing I was able to free up the appendix which was retrocecal and deliver it up into the wound along with portion of the cecum which was mobilized. The appendix was grasped and elevated and I began to dissect along it. The arterial supply was divided and cauterized using the LigaSure device. The appendix Was quite friable and disconnected from its attachments at the cecum. I placed it quickly in a bag and removed it without spillage. Was very tedious to dissect everything out due to the marked inflammation. It was also difficult to tell the anatomy in places. I divided what appeared to be a portion of the appendix which was probably mesentery adjacent to the appendix with stapling device. This freed the base of the appendix up which actually looked viable. I placed a loop at the base of the appendix and cinched it down and appeared to occlude the lumen.The right gutter and pelvis were copiously irrigated and suctioned free of fluid. A drain was placed into the pelvis along the right gutter. This was a 10 mm Anam-Woodard flat drain. It was brought out through the suprapubic port site and secured with 3-0 nylon. The ports were all removed. The stay sutures at the umbilicus were tied. An additional 2 0 PDS was placed between the knees. The wounds were all irrigated and teofilo were used to close the skin. There were no obvious complications. The patient tolerated the procedure well. Complications: none Post-operative Condition: stable Disposition: PACU
--- NOTE | 2021-09-10 22:46 | SUR.PHASEI ---
2139 Patient transfered in bed to room 225 by this RN. Pt alert, oriented, talking and telling stories. Denies pain and nausea. Dressing C/D/I. SBAR report on telephone given to Molly Tillman and handoff at bedside to Jessica Smallwood RN. Pt left with cell phone in hand. Bed in low position and call light in reach. RA sat 97% and HR 72.
[2021-09-10] MEDS: GABAPENTIN 300 MG CAPSULE PO (22:56)
[2021-09-10] MEDS: LACTATED RINGERS 1,000 ML 125 ML IV (22:56)
[2021-09-11] VITALS (8 sets, daily range): BP systolic 119–141; BP diastolic 63–89; PULSE 61–71; RESP 16–18; TEMP 36.4–37.2; O2SAT 93–99
--- NOTE | 2021-09-11 00:27 | PC.NURSE ---
Patient returned from PACU at 2135. Is alert and oriented. Breath sounds CTA with RA sat of 96%. HRR. Denied nausea and has had clear liquids and tolerated without difficulty. BT absent and has not passed flatus. Tender in right abdomen (rates severity as 2/10) and feels bloated but improved from prior to surgery. Bandaid dressings to abdomen are CDI. Has bulky dressing at suprapubic region CDI; SERINA intact and compressed and was emptied of 20cc serosanguinous drainaged. Voided 200cc colby urine and states he did have some burning with urination. Is able to turn himself in bed. Has not yet been out of bed. Wearing bilateral calf SCD's. Fall risk score is low. Instructed to CDB and use incentive spirometer.
[2021-09-11] MEDS: OXYCODONE IR 5 MG TABLET 10 MG PO ×2 (02:11→23:01)
[2021-09-11] MEDS: LACTATED RINGERS 1,000 ML 125 ML IV (04:59)
[2021-09-11 05:42] LABS: Add Manual Diff / Slide Review NO; Basophils Absolute Auto 100 /uL (0-100); Basophils Percent Auto 0.3 % (0-2); Eosinophils Absolute Auto 0 /uL (0-450); Hematocrit 39.1 % (41-53); Hemoglobin 13.2 g/dL (13.5-17.5); Lymphocytes Absolute Auto 500 /uL (1100-4500); Lymphocytes Percent Auto 3.3 % (25-40); Mean Corpuscular HGB Conc 33.9 % (30-36); Mean Corpuscular Hemoglobin 29.8 PG (26-34); Mean Corpuscular Volume 87.8 fL (80-100); Monocytes Absolute Auto 700 /uL (0-900); Monocytes Percent Auto 4.3 % (3-14); Neutrophils Absolute Auto 14600 /uL (1500-7000); Neutrophils Percent Auto 92.1 % (50-75); Platelet Count 251 X10^3/uL (150-400); Red Blood Cell Count 4.45 X10^6/uL (4.5-5.9); Red Cell Distribution Width 12.6 % (11.6-14.8); White Blood Cell Count 15.9 X10^3/uL (4.5-11.0)
[2021-09-11] MEDS: PIPERACILLIN/TAZO 3.375 GM in SODIUM CHLORIDE 0.9% 100 ML 25 ML IV ×3 (06:59→23:01)
[2021-09-11] MEDS: GABAPENTIN 300 MG CAPSULE PO ×2 (10:24→20:55)
[2021-09-11] MEDS: ENOXAPARIN 40 MG/0.4 ML SYRINGE SUBCUT (10:24)
--- NOTE | 2021-09-11 16:35 | P.PN_ITS ---
Subjective Subjective Interval history: Patient is postop day 1 from a perforated appendicitis. He is actually feeling very well. Only took 2 pain pills today. Has been ambulating in the post. Would like to advance the diet a bit if it is safe. Exam Vital Signs (past 8 hours): - 09/11/21 08:40 09/11/21 12:00 09/11/21 16:00 Temperature 98.9 F Pulse Rate 61 Respiratory Rate 18 Blood Pressure 133/63 Pulse Oximetry 94 94 96 Oxygen Delivery Method Room Air Oxygen Flow Rate 0 Narrative Exam Narrative: Lungs are clear. Good effort. Heart regular rate and rhythm without murmur gallop. Abdomen is a bit distended. Bandages are intact. Drainage is blood ti nged. Objective Labs Result Diagrams: 09/11/21 05:24 09/10/21 10:23 Labs: Laboratory Results - last 24 hr 09/11/21 05:24 WBC 15.9 H RBC 4.45 L Hgb 13.2 L Hct 39.1 L MCV 87.8 MCH 29.8 MCHC 33.9 RDW 12.6 Plt Count 251 Neut % (Auto) 92.1 H Lymph % (Auto) 3.3 L [place] % (Auto) 4.3 Eos % (Auto) 0.0 L Baso % (Auto) 0.3 Neut # (Auto) 90326 H Lymph # (Auto) 500 L [place] # (Auto) 700 Eos # (Auto) 0 Baso # (Auto) 100 PFSH Medical History (Updated 09/10/21 @ 13:32 by Steven Marin MD) Fracture of left tibia Paroxysmal atrial fibrillation Social History household members: none Smoking Status: Former smoker Assessment & Plan Post-op Postoperative Procedures: Procedures Operation Date: 09/10/21 16:15 Actual Procedure Side Surgeon p Laparoscopic Appendectomy Steven Marin MD Postoperative status narrative: Patient doing about as expected. Postoperative plan narrative: Urine output is high. I will decrease his fluid change it to NS to be compatible with his Zosyn. I am a bit concerned about his abdominal distension asked him to slow down a bit on his p.o. intake. I will advance his diet for the morning to full liquids. This patient was quite stoic and so I am not sure that his lack of pain is an indication of anything regarding his progress. Will continue IV Zosyn probably for the next 2 days and re-evaluate for discharge at that time.
[2021-09-11] MEDS: SODIUM CHLORIDE 0.9% 500 ML 42 ML IV (18:20)
[2021-09-11] MEDS: SODIUM CHLORIDE 0.9% FLUSH 10 ML IV (20:55)
[2021-09-12] VITALS (10 sets, daily range): BP systolic 107–145; BP diastolic 60–78; PULSE 53–64; RESP 16–18; TEMP 36.2–36.7; O2SAT 95–99
[2021-09-12 05:37] LABS: Add Manual Diff / Slide Review NO; Basophils Absolute Auto 100 /uL (0-100); Basophils Percent Auto 0.5 % (0-2); Eosinophils Absolute Auto 0 /uL (0-450); Eosinophils Percent Auto 0.2 % (2-4); Hematocrit 37.1 % (41-53); Hemoglobin 12.6 g/dL (13.5-17.5); Lymphocytes Absolute Auto 1400 /uL (1100-4500); Lymphocytes Percent Auto 10.8 % (25-40); Mean Corpuscular HGB Conc 34.1 % (30-36); Mean Corpuscular Hemoglobin 30.2 PG (26-34); Mean Corpuscular Volume 88.6 fL (80-100); Monocytes Absolute Auto 1000 /uL (0-900); Monocytes Percent Auto 8.1 % (3-14); Neutrophils Absolute Auto 10200 /uL (1500-7000); Neutrophils Percent Auto 80.4 % (50-75); Platelet Count 267 X10^3/uL (150-400); Red Blood Cell Count 4.19 X10^6/uL (4.5-5.9); Red Cell Distribution Width 12.8 % (11.6-14.8); White Blood Cell Count 12.7 X10^3/uL (4.5-11.0)
[2021-09-12 05:59] LABS: Procalcitonin 0.17 ng/mL (<0.5)
[2021-09-12] MEDS: SODIUM CHLORIDE 0.9% 500 ML 42 ML IV (06:57)
[2021-09-12] MEDS: PIPERACILLIN/TAZO 3.375 GM in SODIUM CHLORIDE 0.9% 100 ML 25 ML IV ×3 (06:57→22:31)
[2021-09-12] MEDS: GABAPENTIN 300 MG CAPSULE PO ×2 (09:11→20:49)
[2021-09-12] MEDS: ENOXAPARIN 40 MG/0.4 ML SYRINGE SUBCUT (09:14)
[2021-09-12] MEDS: SODIUM CHLORIDE 0.9% FLUSH 10 ML IV ×2 (09:15→22:31)
[2021-09-12] MEDS: KETOROLAC 30 MG/ML VIAL IV (14:50)
[2021-09-12] MEDS: ACETAMINOPHEN 325 MG TABLET 650 MG PO (18:00)
--- NOTE | 2021-09-12 19:07 | PM.PNPO.1 ---
Subjective Subjective Interval history: Feeling better. Past a large amount of liquid stool and gas. Exam Vital Signs (past 8 hours): - 09/12/21 12:00 09/12/21 12:30 09/12/21 15:52 Temperature 97.8 F 97.8 F Pulse Rate 56 L 53 L Respiratory Rate 17 16 Blood Pressure 117/71 134/70 Pulse Oximetry 95 95 97 09/12/21 16:00 Temperature Pulse Rate Respiratory Rate Blood Pressure Pulse Oximetry 97 Oxygen Delivery Method Room Air Oxygen Flow Rate 0 Narrative Exam Narrative: Lungs are clear. Good respiratory effort. Heart regular rate and rhythm. Abdomen is much less distended and soft. Still little distended. Dressings are intact. Objective Labs Result Diagrams: 09/12/21 05:03 09/10/21 10:23 Labs: Laboratory Results - last 24 hr 09/12/21 09/12/21 05:03 05:03 WBC 12.7 H RBC 4.19 L Hgb 12.6 L Hct 37.1 L MCV 88.6 MCH 30.2 MCHC 34.1 RDW 12.8 Plt Count 267 Neut % (Auto) 80.4 H Lymph % (Auto) 10.8 L [place] % (Auto) 8.1 Eos % (Auto) 0.2 L Baso % (Auto) 0.5 Neut # (Auto) 35462 H Lymph # (Auto) 1400 [place] # (Auto) 1000 H Eos # (Auto) 0 Baso # (Auto) 100 Procalcitonin 0.17 PFSH Medical History (Updated 09/10/21 @ 13:32 by Steven Marin MD) Fracture of left tibia Paroxysmal atrial fibrillation Social History household members: none Smoking Status: Former smoker Assessment & Plan Post-op Postoperative Procedures: Procedures Operation Date: 09/10/21 16:15 Actual Procedure Side Surgeon p Laparoscopic Appendectomy Steven Marin MD Postoperative status narrative: Patient doing remarkably well. Still has an elevated white count with a left shift. Postoperative plan narrative: Patient tolerating a general diet. Will stop his IV fluid to continue his IV antibiotics. Continue drain at this time. Possible discharge tomorrow or Wednesday depending on white blood cell count and overall disposition.
[2021-09-13] VITALS (10 sets, daily range): BP systolic 103–133; BP diastolic 61–82; PULSE 56–65; RESP 15–17; TEMP 36.5–37.3; O2SAT 95–100
[2021-09-13] MEDS: OXYCODONE IR 5 MG TABLET 10 MG PO (00:40)
[2021-09-13 06:33] LABS: Add Manual Diff / Slide Review NO; Basophils Absolute Auto 0 /uL (0-100); Basophils Percent Auto 0.5 % (0-2); Eosinophils Absolute Auto 300 /uL (0-450); Eosinophils Percent Auto 4.7 % (2-4); Hematocrit 36.5 % (41-53); Hemoglobin 12.7 g/dL (13.5-17.5); Lymphocytes Absolute Auto 2100 /uL (1100-4500); Lymphocytes Percent Auto 28.2 % (25-40); Mean Corpuscular HGB Conc 34.8 % (30-36); Mean Corpuscular Hemoglobin 30.7 PG (26-34); Monocytes Absolute Auto 800 /uL (0-900); Monocytes Percent Auto 10.5 % (3-14); Neutrophils Absolute Auto 4100 /uL (1500-7000); Neutrophils Percent Auto 56.1 % (50-75); Platelet Count 272 X10^3/uL (150-400); Red Blood Cell Count 4.14 X10^6/uL (4.5-5.9); Red Cell Distribution Width 12.9 % (11.6-14.8); White Blood Cell Count 7.4 X10^3/uL (4.5-11.0)
[2021-09-13 06:54] LABS: Procalcitonin 0.13 ng/mL (<0.5)
[2021-09-13] MEDS: PIPERACILLIN/TAZO 3.375 GM in SODIUM CHLORIDE 0.9% 100 ML 25 ML IV ×3 (06:55→23:26)
[2021-09-13] MEDS: SODIUM CHLORIDE 0.9% 250 ML 21 ML IV (06:58)
[2021-09-13] MEDS: SODIUM CHLORIDE 0.9% FLUSH 10 ML IV ×3 (06:58→20:37)
[2021-09-13] MEDS: ONDANSETRON 4 MG/2 ML INJ IV (08:04)
--- NOTE | 2021-09-13 08:18 | P.PN_ITS ---
Subjective Subjective Date Patient Seen: 09/13/21 Time Patient Seen: 08:18 Interval history: Ruptured appendicitis, s/p lap appy w/o complication Exam Vital Signs (past 8 hours): - 09/13/21 04:08 09/13/21 04:12 09/13/21 07:45 Temperature 97.8 F 98 F Pulse Rate 60 56 L Respiratory Rate 16 15 Blood Pressure 118/77 103/61 Pulse Oximetry 98 98 95 Oxygen Delivery Method Room Air Oxygen Flow Rate 0 Narrative Exam Narrative: POD #1, lap appy for ruputured appendicitis. No complications. Drain is serosang. Abdomen is soft with incisional tenderness. C/O heartburn. Objective Labs Result Diagrams: 09/13/21 05:45 09/10/21 10:23 Labs: Laboratory Results - last 24 hr 09/13/21 09/13/21 05:45 05:45 WBC 7.4 RBC 4.14 L Hgb 12.7 L Hct 36.5 L MCV 88.0 MCH 30.7 MCHC 34.8 RDW 12.9 Plt Count 272 Neut % (Auto) 56.1 D Lymph % (Auto) 28.2 [place] % (Auto) 10.5 Eos % (Auto) 4.7 H Baso % (Auto) 0.5 Neut # (Auto) 4100 Lymph # (Auto) 2100 [place] # (Auto) 800 Eos # (Auto) 300 Baso # (Auto) 0 Procalcitonin 0.13 PFSH Medical History (Updated 09/12/21 @ 19:11 by Steven Marin MD) Fracture of left tibia Paroxysmal atrial fibrillation Social History household members: none Smoking Status: Former smoker Assessment & Plan Post-op Postoperative Procedures: Procedures Operation Date: 09/10/21 16:15 Actual Procedure Side Surgeon p Laparoscopic Appendectomy Steven Marin MD Postoperative day: 1 Postoperative status: doing well Postoperative status narrative: WBC is normal. No complications, having heart burn. Postoperative plan narrative: Plan: PPI for heartburn. continue drain continue IV abx for another day Social work consult b/c he lives alone and is planning to drive himself home tomorrow after discharge. Time Spent With Patient Time with patient: less than 15 minutes
[2021-09-13] MEDS: ENOXAPARIN 40 MG/0.4 ML SYRINGE SUBCUT (09:24)
[2021-09-13] MEDS: PANTOPRAZOLE DR 20 MG TABLET PO (09:24)
[2021-09-13] MEDS: GABAPENTIN 300 MG CAPSULE PO ×2 (09:24→20:37)
--- NOTE | 2021-09-13 15:11 | CM.IDA ---
Discharge Planning/Care Management CM Discharge Assessment Start: 09/13/21 14:50 Freq: Status: Active Protocol: Document 09/13/21 14:51 OFELIA (Rec: 09/13/21 15:10 OFELIA [id number]) Discharge Planning Assessment Assigned Ict Teacher TOM Razo DPOA/Assigned Designee Name brother Johnson Contact Information [phone] Advance Directives? No History Provided By Patient Prior Living Arrangements House Household Members none Comment Spouse approx. one year ago, patient has no children and no local family. Brother lives in [place] Type of transportation used prior to Drives own vehicle admit Comment Patient's vehicle is parked in the parking lot and he plans to drive it home Independent with ADL's Yes Is patient alert and oriented? Yes Barriers to Discharge No Comment Patient plans to DC home alone does not think he will have needs. States he can ask a neighbor to assist if needed. Patient plans to drive himself home upon DC. Patient's a year ago and he admits he continues to grieve. Patient has the number for [facility]/grief support, this GEM CUTTER strongly encouraged patient to get in contact w/[facility], patient appreciative for the visit. Currently denies needs from this GEM CUTTER Discharge Plan Home Transportation Arrangement Self, private vehicle Referrals Initiated None needed
--- NOTE | 2021-09-13 23:02 | PC.NURSE ---
SHIFT Report received, care assumed. Pt. A&Ox4, pleasant, appropriate. Denies pain, states he has mild discomfort and it is tolerable. Lap sites x3 CDI with bandaids, SERINA site intact, small amount of serosanguinous drainage within drain. Low fall risk, ambulating independently in room.
[2021-09-14] VITALS: BP 126/79; PULSE 60; RESP 19; TEMP 36.7; O2SAT 97
[2021-09-14 04:00] VITALS: BP 113/69; PULSE 54; RESP 19; TEMP 36.7; O2SAT 99
[2021-09-14] MEDS: PANTOPRAZOLE DR 20 MG TABLET PO (06:41)
[2021-09-14] MEDS: PIPERACILLIN/TAZO 3.375 GM in SODIUM CHLORIDE 0.9% 100 ML 25 ML IV (06:41)
[2021-09-14 08:00] VITALS: BP 125/80; PULSE 57; RESP 17; TEMP 36.4; O2SAT 100
[2021-09-14] MEDS: GABAPENTIN 300 MG CAPSULE PO (09:32)
[2021-09-14 12:00] VITALS: O2SAT 100
--- NOTE | 2021-09-14 12:54 | PM.PNPO.1 ---
Subjective Subjective Date Patient Seen: 09/14/21 Time Patient Seen: 12:54 Exam Vital Signs (past 8 hours): - 09/14/21 08:00 09/14/21 12:00 Temperature 97.6 F Pulse Rate 57 L Respiratory Rate 17 Blood Pressure 125/80 Pulse Oximetry 100 100 Oxygen Delivery Method Room Air Oxygen Flow Rate 0 Narrative Exam Narrative: looks great. drain is serous. abdomen is appropriately tender Objective Labs Result Diagrams: 09/13/21 05:45 09/10/21 10:23 [facility] Medical History (Updated 09/12/21 @ 19:11 by Steven Marin MD) Fracture of left tibia Paroxysmal atrial fibrillation Social History household members: none Smoking Status: Former smoker Assessment & Plan Post-op Postoperative Procedures: Procedures Operation Date: 09/10/21 16:15 Actual Procedure Side Surgeon p Laparoscopic Appendectomy Steven Marin MD Postoperative status: doing well Postoperative status narrative: Switching from IV to po antibiotics, remove drain and discharge home Postoperative plan narrative: Follow up with Dr. Marin 2-4 weeks Time Spent With Patient Time with patient: 15-24 minutes
--- NOTE | 2021-09-14 12:57 | P.DS_ITS ---
History of Present Illness History of Present Illness Date Patient Seen: 09/14/21 Chief complaint: ABD pain four weeks Discharge Providers Provider Date of admission: 09/10/21 13:12 Discharge Date: 09/14/21 Primary care physician: Elvie Strauss PA-C Consults: 09/10/21 22:26 Consult to Discharge Planning Routine Comment: 09/13/21 08:17 Consult to Discharge Planning Routine Comment: lives alone, no ride home. Car is in parking lot Discharge provider: Angelique Mejia MD Summary Status at Discharge Overall status at discharge: patient is progressing back to baseline Time Spent with Patient Time spent: Less than 30 minutes Exam Vital Signs (past 8 hours): - 09/14/21 08:00 09/14/21 12:00 Temperature 97.6 F Pulse Rate 57 L Respiratory Rate 17 Blood Pressure 125/80 Pulse Oximetry 100 100 Oxygen Delivery Method Room Air Oxygen Flow Rate 0 Narrative Exam Narrative: No post op complications, abdomen is appropriately tender. Objective Labs Result Diagrams: 09/13/21 05:45 09/10/21 10:23 [facility] Medical History (Updated 09/12/21 @ 19:11 by Steven Marin MD) Fracture of left tibia Paroxysmal atrial fibrillation Social History household members: none Smoking Status: Former smoker Discharge Assessment & Plan Assessment and Plan Assessment: S/P lap appy for rupture appendicitis Plan of Treatment: Home on po antibiotics after drain is removed. Follow up with surgery clinic 2-4 weeks Discharge Plan Discharge Plan Patient Disposition: Home Provider Discharge Comment: You had a perforated appendix. I would like you to take oral antibiotics for few more days after to leave the hospital. A prescription for these and for narcotics has been sent to [facility] [place]. Discharge orders & Medications Prescriptions: New oxycodone 5 mg tablet See Rx Instructions .ROUTE .COMPLEX PRN (Reason: painful procedure) Qty: 10 0RF Rx Instructions: Take 1 or 2 pills every 6 hours if needed for pain. May constipate. levofloxacin 750 mg tablet 750 mg PO DAILY Qty: 3 0RF metronidazole 500 mg tablet 500 mg PO Q8H Qty: 10 0RF Continued aspirin 325 mg Tablet 325 mg PO DAILY 0RF cholecalciferol (vitamin D3) [Vitamin D3] 25 mcg (1,000 unit) Tablet 50 mcg PO DAILY 0RF Follow up/Referrals: Elvie Strauss PA-C [Primary Care Provider] - Steven Marin MD [Physician] - 2 Weeks (If you already have an appointment please keep it. If not call my office and make an appointment to see me in Wednesday09/24/2021. If you need to reach a doctor please call our office. If it is after hours listen to the message and you will be instructed how to page the doctor on-call for our practice. Have a pen and paper ready to write the 1 800 number down.) Diet/Activity/Treatments Diet: Diet as Tolerated Activity: Do not lift over 10 lb or strain for the next 4 weeks. You may walk. No pool or tub for at least 2 weeks. Skin/Wound/Dressing Care Report to your healthcare provider any signs of infection, such as:: chills, fever, night sweats, increased pain, unusual drainage and unusual redness Dressing: You may remove the Band-Aids when you get home if they are not ever ready removed and shower. Keep a Band-Aid on the incisions for several days after. Shower and put new Band-Aids on. Visit Report/Discharge Packet Instructions: DI for an Appendectomy, DI for Laparoscopy, DI for Prescription Opioid Use, [facility]: Wound Care Discharge Data Primary Care Provider: Elvie Strauss
== END 2021-09-14 12:40 | disposition home or self-care (01) | DRG 339 ==
LOC: ED 10:37 → AC 13:18
PROVIDERS: Admitting Provider Specialist; Emergency Provider Emergency Medicine; PCP Student in an Organized Health Care Education/Training Program; Referring Provider Emergency Medicine; Visit Provider Specialist
PROC: 0DTJ4ZZ Resection of Appendix, Percutaneous Endoscopic Approach (ICD-10-PCS; CPT 44970; principal; 2021-09-10 16:15)
DX: K35.32 Acute appendicitis with perforation, localized peritonitis, and gangrene, without abscess (principal); I96 Gangrene, not elsewhere classified; I48.91 Unspecified atrial fibrillation; Z87.891 Personal history of nicotine dependence; Z20.822 Contact with and (suspected) exposure to COVID-19
CPT/HCPCS: 36415; 44970; 74177; 80053; 81003; 81015; 83690; 84145; 85025; 87635; 93005; 96365; 96375; 99222; 99284; C9803; J1100; J1650; J1885; J2405; J2543; J2704; J3010; Q9967

== ENCOUNTER 2021-11-15 13:57 | Emergency (ER) | payer MEDICARE, SELFPAY ==
[2021-09-10 13:56] VITALS: BMI 34.8
[2021-11-15] VITALS (11 sets, daily range): BP systolic 119–146; BP diastolic 70–87; PULSE 54–71; RESP 17–18; TEMP 36.6; O2SAT 95–100; BMI 34.8
--- NOTE | 2021-11-15 14:40 | ED.ABDPAIN ---
HPI - Abdominal Pain General Chief Complaint: Abdominal Pain Stated Complaint: Rt Side Abd Pain,Weak,Ill, Post Appendectomy Time Seen by Provider: 11/15/21 14:31 Source: patient Mode of arrival: Ambulatory Limitations: no limitations History of Present Illness HPI narrative: The patient has RLQ pain, onset this morning when he got out of bed. He has no fever. Has no nausea, vomiting or diarrhea. Has no back pain. Pain does not radiate to his scrotum. He has no dysuria or hematuria. Has no history of kidney stones. He underwent appendectomy September 10, 2021 after presenting with a ruptured appendix. He feels his postop recovery 1 well. He has had no issues until the pain today. Pain is decreased to the course the day. He has not been experiencing pain prior to now. There is a complex cystic lesion on the left kidney, noted on the CT done at the time of the appendicitis diagnosis. Related Data Home Medications Medication Instructions Recorded Confirmed aspirin 325 mg tablet 325 mg PO DAILY 09/10/21 11/15/21 Allergies Allergy/AdvReac Type Severity Reaction Status Date / Time No Known Drug Allergies Allergy Verified 11/15/21 14:09 Review of Systems Constitutional Constitutional: Denies body ache(s), Denies chills, Denies fatigue and Denies fever(s) ENT Ears, Nose, Mouth, and Throat: Denies vertigo, Denies dizziness, Denies neck pain, Denies sinus pressure and Denies sore throat Cardiovascular Cardiovascular: Denies chest pain, Denies rapid heart rate, Denies irregular heart rhythm and Denies dyspnea Respiratory Respiratory: Denies cough and Denies dyspnea Gastrointestinal Gastrointestinal: Denies abdominal pain and Denies nausea Genitourinary Genitourinary: Denies flank pain Musculoskeletal Musculoskeletal: Denies neck pain Integumentary/Breasts Skin/Breast: Denies lesions and Denies rash Neurologic Neurologic: Denies confusion, Denies vertigo and Denies dizziness Psychiatric Psychiatric: Denies confusion Endocrine Endocrine: Denies fatigue Hematologic/Lymphatic On Anticoagulants: No Patient History Medical History (Updated 11/15/21 @ 17:49 by Hua Rivera MD) Fracture of left tibia Paroxysmal atrial fibrillation Surgical History (Updated 11/15/21 @ 15:02 by Hua Rivera MD) S/P appendectomy Social History household members: none Smoking Status: Former smoker Smoking Status: Former smoker alcohol intake frequency: holidays/special occasions only Substance Use Type: does not use Exam Initial Vital Signs Initial Vital Signs: Vital Signs Temperature 98 F 11/15/21 14:06 Pulse Rate 71 11/15/21 14:06 Respiratory Rate 17 11/15/21 14:06 Blood Pressure 146/87 H 11/15/21 14:06 Pulse Oximetry 97 11/15/21 14:06 Const General: cooperative, healthy appearing, comfortable, well developed and well groomed Orientation: Orientation (Intact) [facility] Head: normocephalic and atraumatic Resp Effort & Inspection: normal respiratory effort Auscultation: clear to auscultation bilaterally Cardio Rate: regular rate Rhythm: regular rhythm Heart Sounds: S1 normal, S2 normal, no click, no murmurs and no rubs GI Inspection: normal to inspection Palpation: soft, No guarding, No mass and tender (RLQ tenderness with out guarding or rebound.) Auscultation: normal bowel sounds Back/Spine/Pelvis Back: No CVA tenderness Skin General: no rashes or lesions noted Neuro General: patient alert, patient awake, patient oriented x3 and no focal motor deficits Extrem General: normal to inspection, full ROM, no pedal edema and no calf tenderness Course Course Course Narrative: CT again displays the left renal cystic mass noted on the CT demonstrating acute appendicitis [address] Armendariz with Urology is my list on-call urologist. She provided contact information for the patient to arrange follow-up with their group. The CT has been forwarded to the [facility]. I so advised the patient to follow up locally with his PCM, choose whether he plans to seek local care or to follow-up with [facility]. Orders Ordered: ED Orders 11/15/21 14:00 COVID19 -Nasal swab/Pre-Proc Stat 11/15/21 14:50 CT abdomen pelvis w con Stat 11/15/21 15:05 Complete Blood Count AUTO DIFF Stat Comprehensive Metabolic Panel Stat Lipase Stat Discontinued Medications Sodium Chloride (Normal Saline 0.9%) 1,000 mls @ 150 mls/hr IV CONT CLARITZA Last Admin: 11/15/21 15:14 Dose: 150 mls/hr Documented by: PASCUAL Ketorolac Tromethamine (Ketorolac 30 Mg/Ml Vial) 15 mg IV NOW ONE Stop: 11/15/21 14:50 Last Admin: 11/15/21 15:14 Dose: 15 mg Documented by: PASCUAL Vital Signs Vital signs: Vital Signs - 8 hr 11/15/21 14:06 11/15/21 14:30 11/15/21 14:31 Temperature 98 F Pulse Rate 71 67 Respiratory Rate 17 Blood Pressure 146/87 H 123/82 120/77 Pulse Oximetry 97 96 11/15/21 14:32 11/15/21 16:00 11/15/21 16:01 Temperature Pulse Rate 67 61 60 Respiratory Rate 18 Blood Pressure 120/77 119/72 Pulse Oximetry 95 97 98 11/15/21 16:30 11/15/21 17:00 11/15/21 17:30 Temperature Pulse Rate 54 L 56 L 57 L Respiratory Rate Blood Pressure Pulse Oximetry 96 98 98 11/15/21 17:31 11/15/21 17:41 Temperature Pulse Rate 62 55 L Respiratory Rate Blood Pressure 123/70 133/80 Pulse Oximetry 98 100 MDM - Abdominal Pain Lab Data Result diagrams: 11/15/21 15:05 11/15/21 15:05 Labs: Lab Results 11/15/21 11/15/21 11/15/21 Range/Units 14:00 15:05 15:05 WBC 6.4 (4.5-11.0) X10^3/uL RBC 4.80 (4.5-5.9) X10^6/uL Hgb 14.7 (13.5-17.5) g/dL Hct 42.5 (41-53) % MCV 88.6 (80-100) fL MCH 30.6 (26-34) PG MCHC 34.6 (30-36) % RDW 14.3 (11.6-14.8) % Plt Count 226 (150-400) X10^3/uL Neut % (Auto) 71.6 (50-75) % Lymph % (Auto) 17.8 L (25-40) % [place] % (Auto) 7.4 (3-14) % Eos % (Auto) 1.9 L (2-4) % Baso % (Auto) 1.3 (0-2) % Neut # (Auto) 4600 (9120-6652) /uL Lymph # (Auto) 1100 (8447-7341) /uL [place] # (Auto) 500 (0-900) /uL Eos # (Auto) 100 (0-450) /uL Baso # (Auto) 100 (0-100) /uL Sodium 139 (137-145) mmol/L Potassium 4.4 (3.4-5.1) mmol/L Chloride 108 H (98-107) mmol/L Carbon Dioxide 27 (22-32) mmol/L BUN 16 (9-20) mg/dL Creatinine 1.02 (0.66-1.25) mg/dL Estimated GFR > 60.0 (>60) mL/min BUN/Creatinine Ratio 15.7 (6-22) Glucose 114 H (80-110) mg/dL Calcium 9.0 (8.4-10.2) mg/dL Total Bilirubin 0.4 (0.2-1.3) mg/dL AST 28 (17-59) IU/L ALT 22 (<50) IU/L Alkaline Phosphatase 81 (38-126) U/L Total Protein 6.8 (6.3-8.2) g/dL Albumin 4.2 (3.5-5.0) g/dL Globulin 2.6 (1.7-4.1) g/dL Albumin/Globulin Ratio 1.6 (1.0-2.8) Lipase 115 (23-300) U/L SARS-CoV-2 (PCR) Negative (Negative) Point of care testing: Urine Dip Bedside Urine Glucose Negative Bedside Urine Bilirubin - Negative Bedside Urine Ketone - Negative Urine Specific [place] 1.010 Bedside Urine Occult Blood - Negative Bedside Urine pH 6.0 Bedside Urine Protein - Negative Bedside Urine Urobilinogen - Negative Bedside Urine Nitrite - Negative Bedside Urine Leukocytes - Negative Esterase Imaging Data CT scan - abdomen/pelvis: Radiologist's Impression: ROCEDURE:? CT ABDOMEN PELVIS W CON ? INDICATIONS:? RLQ pain.? S/P appendectomy, ruptured appendix. ? TECHNIQUE:? After the administration of intravenous contrast, 5 mm thick images acquired from the diaphragm to the symphysis pubis.? 2 mm thick coronal and sagittal reformats were then performed.? For radiation dose reduction, the following was used:? automated exposure control, adjustment of mA and/or kV according to patient size.? ? COMPARISON:? [facility], CT, CT ABDOMEN PELVIS W CON, 09/10/2021, 11:14. ? FINDINGS:? Image quality:? Excellent.? ? Lung bases:? Lung bases are clear.? Heart size is normal.? ? Urinary system:? There is again seen an irregular cystic lesion of the superior pole of the left kidney that measures up to 11 cm, with areas of apparent enhancing septations.? No additional kidney lesion is seen.? No hydronephrosis is seen. ? Solid organs:? Liver is normal in size and enhancement.? Tiny hypodense liver lesions are again seen.? Gallbladder wall is not thickened.? Biliary system is non dilated.? Pancreas enhances normally.? Spleen is normal in size and enhancement.? No adrenal nodules.? ? Peritoneum and bowel:? In this patient with this given history, scrutiny is given to the right lower quadrant.? Appendectomy changes are seen, without inflammatory change.? No abscess can be seen. ? Bowel loops demonstrate normal wall thickness and caliber.? No free fluid or air.? Colonic diverticulosis is seen, without findings of active diverticulitis. ? Nodes and vessels:? No retroperitoneal or mesenteric adenopathy by size criteria.? Aorta and inferior vena cava are normal in size.? ? Abdominal wall:? Postoperative change can be seen of the right lower quadrant of the anterior abdominal wall.? A mild periumbilical hernia is seen, containing fat. ? ? Pelvis:? No pathologic free pelvic fluid.? No inguinal hernias or adenopathy.? ? Bones:? No suspicious bony lesions.? There is a mild, stable chronic L1 anterior wedge deformity, with 20% loss of height.? S-shaped scoliotic curvature is seen.? Focal L4-L5 degenerative change is seen.? Milder degenerative changes are seen elsewhere. ? ? ? IMPRESSION:? Status post appendectomy, without findings of abscess or other significant postoperative abnormality. ? Postoperative change of the anterior abdominal wall can be seen, which is considered to be within normal limits. ? There is an irregular cystic lesion seen involving the left kidney measuring 11 cm and demonstrating apparent enhancing septations within it.? This is considered to be a Bosniak type 2 F lesion.? When clinically appropriate a dedicated renal mass protocol CT is recommended for further evaluation. ? Numerous tiny low-density liver lesions are seen.? These are too small to definitively characterize, yet are most consistent with benign cysts or multiple hemangiomas. ? ? Incidental note is made of: Fat containing periumbilical hernia Stable chronic L1 anterior wedge deformity Focal L4-L5 degenerative change Diverticulosis, without active diverticulitis ? ? Dictated by: Cesar Meyer M.D. on 11/15/2021 at 15:22 ? ? Approved by: Cesar Meyer M.D. on 11/15/2021 at 15:27?? Discharge Plan Departure Patient Disposition: Home Clinical Impression: Left renal mass Activity Restrictions/Additional Instructions: There is no evidence of abscess, or complications to appendectomy. You have a complex cyst on your left kidney that needs further evaluation. I discussed your situation with Dr. Armendariz with [facility]. Contact the department at: or [phone] for an appointment if you choose to go there. Your CT has been forwarded to the [facility], they should have access to your films. Otherwise, contact your local primary care doctor to proceed with local evaluation. Return here as needed. Prescriptions: No Action aspirin 325 mg Tablet 325 mg PO DAILY 0RF Referrals: Elvie Strauss PA-C [Primary Care Provider] -
[2021-11-15 14:48] LABS: COVID19 -Nasal RAPID Negative (Negative)
--- NOTE | 2021-11-15 14:50 | DI.CT.S_ITS ---
PROCEDURE: CT ABDOMEN PELVIS W CON INDICATIONS: RLQ pain. S/P appendectomy, ruptured appendix. TECHNIQUE: After the administration of intravenous contrast, 5 mm thick images acquired from the diaphragm to the symphysis pubis. 2 mm thick coronal and sagittal reformats were then performed. For radiation dose reduction, the following was used: automated exposure control, adjustment of mA and/or kV according to patient size. COMPARISON: [facility], CT, CT ABDOMEN PELVIS W CON, 09/10/2021, 11:14. FINDINGS: Image quality: Excellent. Lung bases: Lung bases are clear. Heart size is normal. Urinary system: There is again seen an irregular cystic lesion of the superior pole of the left kidney that measures up to 11 cm, with areas of apparent enhancing septations. No additional kidney lesion is seen. No hydronephrosis is seen. Solid organs: Liver is normal in size and enhancement. Tiny hypodense liver lesions are again seen. Gallbladder wall is not thickened. Biliary system is non dilated. Pancreas enhances normally. Spleen is normal in size and enhancement. No adrenal nodules. Peritoneum and bowel: In this patient with this given history, scrutiny is given to the right lower quadrant. Appendectomy changes are seen, without inflammatory change. No abscess can be seen. Bowel loops demonstrate normal wall thickness and caliber. No free fluid or air. Colonic diverticulosis is seen, without findings of active diverticulitis. Nodes and vessels: No retroperitoneal or mesenteric adenopathy by size criteria. Aorta and inferior vena cava are normal in size. Abdominal wall: Postoperative change can be seen of the right lower quadrant of the anterior abdominal wall. A mild periumbilical hernia is seen, containing fat. Pelvis: No pathologic free pelvic fluid. No inguinal hernias or adenopathy. Bones: No suspicious bony lesions. There is a mild, stable chronic L1 anterior wedge deformity, with 20% loss of height. S-shaped scoliotic curvature is seen. Focal L4-L5 degenerative change is seen. Milder degenerative changes are seen elsewhere. IMPRESSION: Status post appendectomy, without findings of abscess or other significant postoperative abnormality. Postoperative change of the anterior abdominal wall can be seen, which is considered to be within normal limits. There is an irregular cystic lesion seen involving the left kidney measuring 11 cm and demonstrating apparent enhancing septations within it. This is considered to be a Bosniak type 2 F lesion. When clinically appropriate a dedicated renal mass protocol CT is recommended for further evaluation. Numerous tiny low-density liver lesions are seen. These are too small to definitively characterize, yet are most consistent with benign cysts or multiple hemangiomas. Incidental note is made of: Fat containing periumbilical hernia Stable chronic L1 anterior wedge deformity Focal L4-L5 degenerative change Diverticulosis, without active diverticulitis Dictated by: Cesar Meyer M.D. on 11/15/2021 at 15:22 Approved by: Cesar Meyer M.D. on 11/15/2021 at 15:27
[2021-11-15] MEDS: KETOROLAC 30 MG/ML VIAL 15 MG IV (15:14)
[2021-11-15] MEDS: SODIUM CHLORIDE 0.9% 1,000 ML 150 ML IV (15:14)
[2021-11-15 15:24] LABS: Alanine Aminotransferase 22 IU/L (<50); Albumin 4.2 g/dL (3.5-5.0); Albumin Globulin Ratio 1.6 (1.0-2.8); Alkaline Phosphatase 81 U/L (38-126); Aspartate Aminotransferase 28 IU/L (17-59); BUN Creatinine Ratio 15.7 (6-22); Bilirubin Total 0.4 mg/dL (0.2-1.3); Blood Urea Nitrogen 16 mg/dL (9-20); Carbon Dioxide 27 mmol/L (22-32); Chloride 108 mmol/L (98-107); Estimated Glomerular Filt Rate > 60.0 mL/min (>60); Globulin 2.6 g/dL (1.7-4.1); Glucose 114 mg/dL (80-110); HEMOLYSIS 24 (0-50); Lipase 115 U/L (23-300); Potassium 4.4 mmol/L (3.4-5.1); Sodium 139 mmol/L (137-145); Total Protein 6.8 g/dL (6.3-8.2)
[2021-11-15 15:26] LABS: Add Manual Diff / Slide Review NO; Basophils Absolute Auto 100 /uL (0-100); Basophils Percent Auto 1.3 % (0-2); Eosinophils Absolute Auto 100 /uL (0-450); Eosinophils Percent Auto 1.9 % (2-4); Hematocrit 42.5 % (41-53); Hemoglobin 14.7 g/dL (13.5-17.5); Lymphocytes Absolute Auto 1100 /uL (1100-4500); Lymphocytes Percent Auto 17.8 % (25-40); Mean Corpuscular HGB Conc 34.6 % (30-36); Mean Corpuscular Hemoglobin 30.6 PG (26-34); Mean Corpuscular Volume 88.6 fL (80-100); Monocytes Absolute Auto 500 /uL (0-900); Monocytes Percent Auto 7.4 % (3-14); Neutrophils Absolute Auto 4600 /uL (1500-7000); Neutrophils Percent Auto 71.6 % (50-75); Platelet Count 226 X10^3/uL (150-400); Red Cell Distribution Width 14.3 % (11.6-14.8); White Blood Cell Count 6.4 X10^3/uL (4.5-11.0)
== END 2021-11-15 18:09 | disposition home or self-care (01) ==
PROVIDERS: Emergency Provider Emergency Medicine; PCP Student in an Organized Health Care Education/Training Program
DX: N28.9 Disorder of kidney and ureter, unspecified (principal); Z87.891 Personal history of nicotine dependence; Z20.822 Contact with and (suspected) exposure to COVID-19
CPT/HCPCS: 36415; 74177; 80053; 81003; 83690; 85025; 87635; 96361; 96374; 99284; C9803; J1885; Q9967

== ENCOUNTER → 2023-09-16 10:07 | Outpatient (CLI) | payer MEDICARE, SELFPAY ==
[2021-09-10 13:56] VITALS: BMI 34.8
--- NOTE | 2023-09-16 | DI.US.S_ITS ---
PROCEDURE: US ABD AORTA ANEURYSM SCREEN INDICATIONS: Screening for cardiovascular disorders TECHNIQUE: Real time scanning was performed of the aorta and iliac arteries, with image documentation. COMPARISON: None. FINDINGS: Aorta: Proximal aortic diameter measures 1.7 cm. Mid-aorta measures 2.0 cm. Distal aortic diameter is 2.0 cm. Iliac arteries: Right common iliac artery measures 1.2 cm. Left common iliac artery measures 1.0 cm. IMPRESSION: No sonographic evidence for abdominal aortic aneurysm. Dictated by: Maycol Miranda M.D. on 09/16/2023 at 11:28 Approved by: Maycol Miranda M.D. on 09/16/2023 at 11:29
== END ==
PROVIDERS: PCP Student in an Organized Health Care Education/Training Program; Referring Provider Student in an Organized Health Care Education/Training Program; Visit Provider Student in an Organized Health Care Education/Training Program
DX: Z13.6 Encounter for screening for cardiovascular disorders (principal)
CPT/HCPCS: 76706

== ENCOUNTER 2025-01-25 06:54 | Emergency (ER) | payer MEDICARE, SELFPAY ==
[2021-09-10 13:56] VITALS: BMI 34.8
[2025-01-25] VITALS (7 sets, daily range): BP systolic 142–180; BP diastolic 75–97; PULSE 54–63; RESP 18; TEMP 37.1; O2SAT 94–98; BMI 36.6
--- NOTE | 2025-01-25 07:06 | ED_ITS ---
HPI - Weakness General Chief complaint: Weakness Stated complaint: Feeling Ill , lump in right arm Time Seen by Provider: 01/25/25 07:05 Source: patient Mode of arrival: Ambulatory History of Present Illness HPI Narrative: 69-year-old male presenting from home for evaluation of generalized weakness, he states that he just feels ?off. He states that he was worried that he might have had an infected bump on his arm that could be causing this. He states that proximally 3 weeks ago he fell has had a small bump that has been getting smaller on his right arm but was worried that this could have been causing his symptoms. He states that he looked things up online and was worried that it could have been infected. He denies any numbness weakness tingling to that right upper extremity, he denies any blood thinners. He states that he just feels ?off and just wanted to be checked out. But he denies any actual symptoms of headache visual disturbances chest pain shortness of breath fever chills nausea vomiting abdominal pain or any other GI/ symptoms at this time. He states that he has had a history of paroxysmal AFib but only takes an aspirin Related Data Home Medications Medication Instructions Recorded Confirmed aspirin 325 mg tablet 325 mg PO DAILY 09/10/21 11/15/21 Allergies Allergy/AdvReac Type Severity Reaction Status Date / Time No Known Drug Allergies Allergy Verified 11/15/21 14:09 Review of Systems Review of Systems Narrative: General: Positive generalized weakness, Denies fever, chills, weight loss HEENT: Denies headache, eye drainage, eye irritation, head trauma, sore throat, voice change Cardiovascular: Denies any chest pain, palpitations, tachycardia Respiratory: Denies any shortness of breath, cough, wheeze, stridor GI/: Denies any abdominal pain, nausea, vomiting, diarrhea, bright red blood per rectum, melanotic stools, urinary frequency, urinary retention, dysuria, hematuria MSK: Denies any joint pain, muscle pains, swelling Skin: Denies any rashes, lesions, discoloration Neuro: Denies any headache, lightheadedness, dizziness, fainting, weakness Psych: Denies SI/HI Patient History Medical History Fracture of left tibia Paroxysmal atrial fibrillation Surgical History S/P appendectomy Social History household members: none Smoking Status: Never smoker Smoking Status: Never smoker alcohol intake frequency: holidays/special occasions only Exam Narrative Exam Narrative: General: Cooperative, well-developed, not in acute distress HEENT: Normocephalic, atraumatic, PERRLA, normal sclera, eyelids normal Neck: Active full range of motion, atraumatic Chest: Normal to inspection, negative crepitus, no overlying erythema ecchymosis Respiratory: Normal respiratory effort, not in acute respiratory distress, clear to auscultation bilaterally negative cough, wheeze, tachypnea, rhonchi, rales Cardiology: Regular rate rhythm negative gallop, murmur, rubs GI/: No tenderness to palpation, soft, non rigid, normal to inspection, exam deferred MSK: Full active range of motion in all 4 extremities, atraumatic, no tenderness to palpation of any bony prominences, small hematoma noted to the posterior aspect of the right forearm, no tenderness to palpation no crepitus no streaking no signs of infection, neurovascularly intact Skin: No rashes or lesions noted Neuro: Alert awake oriented x3, moves all 4 extremities spontaneously, cranial nerves intact, able to answer all questions appropriately follows commands appropriately Psych: Cooperative, negative suicidal or homicidal ideations Initial Vital Signs Initial Vital Signs: Vital Signs Pulse Rate 63 01/25/25 06:59 Blood Pressure 171/97 H 01/25/25 06:59 Pulse Oximetry 97 01/25/25 06:59 Course Orders Ordered: ED Orders 01/25/25 07:14 XR chest 1V Stat EKG-12 Lead Stat 01/25/25 07:41 Complete Blood Count AUTO DIFF Stat Comprehensive Metabolic Panel Stat Lipase Stat MAG [Magnesium] Stat Troponin & CK Cardiac Panel Stat 01/25/25 07:42 Covid-19 + FLU A/B + RSV - PCR Stat 01/25/25 08:23 Urine Microscopic Stat Vital Signs Vital signs: Vital Signs - 8 hr 01/25/25 06:59 01/25/25 06:59 01/25/25 06:59 Temperature Pulse Rate 63 63 Respiratory Rate Blood Pressure 171/97 H Pulse Oximetry 97 97 Oxygen Delivery Method 01/25/25 07:00 01/25/25 07:00 01/25/25 07:01 Temperature 98.8 F Pulse Rate 61 60 Respiratory Rate 18 Blood Pressure 171/97 H 180/91 H Pulse Oximetry 97 96 Oxygen Delivery Method Room Air 01/25/25 07:01 01/25/25 07:30 01/25/25 07:30 Temperature Pulse Rate 63 63 Respiratory Rate Blood Pressure 147/79 H Pulse Oximetry 98 96 Oxygen Delivery Method 01/25/25 08:00 01/25/25 08:01 01/25/25 08:01 Temperature Pulse Rate 55 L 57 L Respiratory Rate Blood Pressure 142/87 H Pulse Oximetry 95 94 Oxygen Delivery Method 01/25/25 08:30 01/25/25 08:30 Temperature Pulse Rate 54 L Respiratory Rate Blood Pressure 151/75 H Pulse Oximetry 95 Oxygen Delivery Method Room Air MDM - Weakness Differential Diagnosis Differential diagnosis: Likely other (COVID, flu, ACS, pneumonia, electrolyte abnormality) Lab Data 01/25/25 07:41 01/25/25 07:41 Labs: Lab Results 01/25/25 01/25/25 01/25/25 Range/Units 07:41 07:42 08:23 WBC 6.6 (4.5-11.0) X10^3/uL RBC 4.81 (4.5-5.9) X10^6/uL Hgb 14.8 (13.5-17.5) g/dL Hct 43.0 (41-53) % MCV 89.3 (80-100) fL MCH 30.8 (26-34) PG MCHC 34.5 (30-36) % RDW 13.0 (11.6-14.8) % Plt Count 235 (150-400) X10^3/uL Neut % (Auto) 61.7 (50-75) % Lymph % (Auto) 25.3 (25-40) % [place] % (Auto) 9.6 (3-14) % Eos % (Auto) 2.6 (2-4) % Baso % (Auto) 0.8 (0-2) % Neut # (Auto) 4100 (6158-1960) /uL Lymph # (Auto) 1700 (0541-1905) /uL [place] # (Auto) 600 (0-900) /uL Eos # (Auto) 200 (0-450) /uL Baso # (Auto) 0 (0-100) /uL Sodium 138 (137-145) mmol/L Potassium 4.3 (3.4-5.1) mmol/L Chloride 109 H (98-107) mmol/L Carbon Dioxide 23 (22-32) mmol/L BUN 19 (9-20) mg/dL Creatinine 1.22 (0.66-1.25) mg/dL Estimated GFR > 60 (>60) mL/min BUN/Creatinine Ratio 15.6 (6-22) Glucose 101 (80-110) mg/dL Calcium 8.8 (8.4-10.2) mg/dL Magnesium 2.0 (1.6-2.3) mg/dL Total Bilirubin 0.6 (0.2-1.3) mg/dL AST 37 (17-59) IU/L ALT 31 (<50) IU/L Alkaline Phosphatase 81 (38-126) U/L Total Creatine Kinase 154 (55-170) U/L Troponin I < 0.012 (0.01-0.034) ng/mL Total Protein 6.9 (6.3-8.2) g/dL Albumin 4.3 (3.5-5.0) g/dL Globulin 2.6 (1.7-4.1) g/dL Albumin/Globulin Ratio 1.7 (1.0-2.8) Lipase 152 (23-300) U/L Urine RBC 0-1/hpf (0-5/HPF) Urine WBC None seen (0-5/HPF) Ur Squamous Epith Cells None seen (0-5/HPF) Urine Bacteria None seen (None) Ur Culture Indicated? Cult not indicated Vol Urine Centrifuged 10ml (spun) SARS-CoV-2 (PCR) Negative (Negative) Influenza A (RT-PCR) Flu a negative (NEGATIVE) Influenza B (RT-PCR) Flu b negative (NEGATIVE) RSV (PCR) Negative (Negative) Urine Dip Bedside Urine Glucose Negative Bedside Urine Bilirubin - Negative Bedside Urine Ketone - Negative Urine Specific [place] 1.015 Bedside Urine Occult Blood +/- Bedside Urine pH 6.0 Bedside Urine Protein - Negative Bedside Urine Urobilinogen - Negative Bedside Urine Nitrite - Negative Bedside Urine Leukocytes - Negative Esterase Imaging Data Chest x-ray: Radiologist Impression: [address] [address] XRay Report Signed Patient: Andrew Cullen MR#: [id number] : 1955 Acct:[id number] Age/Sex: 69 / M Date of Service: 01/25/25 Loc: ED Accession Number: [id number] Procedure: XR chest 1V Ordering Provider: Reece Magallon D.O. PROCEDURE: XR CHEST 1V INDICATIONS: Weakness TECHNIQUE: One view of the chest was acquired. COMPARISON: [facility], , XR CHEST 2V, 11/28/2020, 10:53. FINDINGS: Surgical changes and devices: None. Lungs and pleura: Lungs are clear. No pleural effusions or pneumothorax. Mediastinum: Mediastinal contours appear normal. Heart size is normal. Bones and chest wall: No suspicious bony lesions. Overlying soft tissues appear unremarkable. IMPRESSION: No acute cardiopulmonary abnormality is seen. ECG Data Interpretation: EKG interpreted ED physician sinus bradycardia at 54 beats per minute QTC 392, normal axis, nonspecific ST changes, no STEMI MDM Narrative Medical decision making narrative: 69-year-old male with a history of paroxysmal AFib not on anticoagulation or rate control presents for feelings of generalized weakness/feeling off. States that this started yesterday, states that he was concerned that the bruise that he had on his right arm after mechanical trip and fall 3 weeks ago could be infected and was contributing to his symptoms given the fact that he looked up his symptoms online. On exam there is a well-healing hematoma to the right upper extremity, he is neurovascularly intact. Patient had lab work EKG and chest x-ray performed here in the emergency department. EKG nonischemic in nature, chest x-ray without any acute cardiopulmonary abnormality, lab work unremarkable, no leukocytosis Chem panel unremarkable, troponin negative, patient's urinalysis without signs of acute urinary tract infection, respiratory panel negative, patient will be discharged home with strict return precautions he verbalized understanding of these and agrees to being discharged home with outpatient follow up. He was instructed follow up with his primary care doctor, understands and agrees with this plan Discharge Plan Departure Patient Disposition: Home Clinical Impression: Generalized weakness Activity Restrictions/Additional Instructions: Please follow up with your primary care doctor Please read the discharge instructions sheet carefully and bring all papers to all doctor follow-up visits, as it may contain information that your doctor may want to see. Disease processes change and evolve, if your symptoms worsen or if you develop any new symptoms that are concerning to you please return for evaluation. Your evaluation today does not show any evidence of any life- threatening/serious illnesses requiring admission to the hospital or surgery. Please follow-up with your doctor for re-evaluation in approximately 1 day. Seek immediate medical attention for any worrisome symptoms. *If you do not have a primary care provider please contact the [facility] Resource line at [phone]. They will ask some questions about your medical history and help get you set up with a doctor in the community. Prescriptions: No Action aspirin 325 mg Tablet 325 mg PO DAILY Referrals: Elvie Strauss PA-C [Primary Care Provider] - Stand Alone Forms: Patient Portal/API/Survey
--- NOTE | 2025-01-25 07:14 | EKG_ITS ---
[address] [address] Test Date: 2025-01-25 Pat Name: Andrew Cullen Department: [facility] Room: Gender: Male Visualization Developer: DEANDRE : 1955 Requested By: Order Number: [id number] Reading MD: Anant Bell MD Measurements Intervals [place] Rate: 54 P: 17 NM: 158 QRS: 8 QRSD: 88 T: 22 QT: 414 QTc: 392 Interpretive Statements Sinus bradycardia Electronically Signed On 01-25-2025 10:47:57 PDT by Anant Bell MD
--- NOTE | 2025-01-25 07:14 | DI.RAD.S_ITS ---
PROCEDURE: XR CHEST 1V INDICATIONS: Weakness TECHNIQUE: One view of the chest was acquired. COMPARISON: [facility], CR, XR CHEST 2V, 11/28/2020, 10:53. FINDINGS: Surgical changes and devices: None. Lungs and pleura: Lungs are clear. No pleural effusions or pneumothorax. Mediastinum: Mediastinal contours appear normal. Heart size is normal. Bones and chest wall: No suspicious bony lesions. Overlying soft tissues appear unremarkable. IMPRESSION: No acute cardiopulmonary abnormality is seen. Dictated by: Riccardo Harris M.D. on 01/25/2025 at 8:02 Approved by: Riccardo Harris M.D. on 01/25/2025 at 8:03
[2025-01-25 07:51] LABS: Add Manual Diff / Slide Review NO; Basophils Absolute Auto 0 /uL (0-100); Basophils Percent Auto 0.8 % (0-2); Eosinophils Absolute Auto 200 /uL (0-450); Eosinophils Percent Auto 2.6 % (2-4); Hemoglobin 14.8 g/dL (13.5-17.5); Lymphocytes Absolute Auto 1700 /uL (1100-4500); Lymphocytes Percent Auto 25.3 % (25-40); Mean Corpuscular HGB Conc 34.5 % (30-36); Mean Corpuscular Hemoglobin 30.8 PG (26-34); Mean Corpuscular Volume 89.3 fL (80-100); Monocytes Absolute Auto 600 /uL (0-900); Monocytes Percent Auto 9.6 % (3-14); Neutrophils Absolute Auto 4100 /uL (1500-7000); Neutrophils Percent Auto 61.7 % (50-75); Platelet Count 235 X10^3/uL (150-400); Red Blood Cell Count 4.81 X10^6/uL (4.5-5.9); White Blood Cell Count 6.6 X10^3/uL (4.5-11.0)
[2025-01-25 08:03] LABS: Alanine Aminotransferase 31 IU/L (<50); Albumin 4.3 g/dL (3.5-5.0); Albumin Globulin Ratio 1.7 (1.0-2.8); Alkaline Phosphatase 81 U/L (38-126); Aspartate Aminotransferase 37 IU/L (17-59); BUN Creatinine Ratio 15.6 (6-22); Bilirubin Total 0.6 mg/dL (0.2-1.3); Blood Urea Nitrogen 19 mg/dL (9-20); Calcium 8.8 mg/dL (8.4-10.2); Carbon Dioxide 23 mmol/L (22-32); Chloride 109 mmol/L (98-107); Creatine Kinase 154 U/L (55-170); Estimated Glomerular Filt Rate > 60 mL/min (>60); Globulin 2.6 g/dL (1.7-4.1); Glucose 101 mg/dL (80-110); HEMOLYSIS 16 (0-50); Lipase 152 U/L (23-300); Potassium 4.3 mmol/L (3.4-5.1); Sodium 138 mmol/L (137-145); Total Protein 6.9 g/dL (6.3-8.2)
[2025-01-25 08:14] LABS: Troponin I < 0.012 ng/mL (0.01-0.034)
[2025-01-25 08:32] LABS: COVID-19 CEPHEID 4-PLEX PCR Negative (Negative); Influenza A - CEPHEID Flu A NEGATIVE (NEGATIVE); Influenza B - CEPHEID Flu B NEGATIVE (NEGATIVE); Respiratory Syncytial Virus Negative (Negative)
[2025-01-25 08:35] LABS: Urine Volume 10mL (spun)
[2025-01-25 08:39] LABS: Bacteria Urine None Seen; Culture Indicated Urine Cult Not Indicated; RBC Urine 0-1/HPF (0-5/HPF); Squamous Epithelial Cell Urine None Seen (0-5/HPF); WBC Urine None Seen (0-5/HPF)
== END 2025-01-25 09:03 | disposition home or self-care (01) ==
PROVIDERS: Emergency Provider Student in an Organized Health Care Education/Training Program; PCP Student in an Organized Health Care Education/Training Program
DX: R53.1 Weakness (principal)
CPT/HCPCS: 0241U; 36415; 71045; 80053; 81003; 81015; 82550; 83690; 83735; 84484; 85025; 93005; 93010; 99283; 99284